=== PATIENT | male | born 1945 | race Caucasian/White ===

== ENCOUNTER 2016-12-11 08:31 | Day surgery (SDC) | payer MEDICARE, BC ==
[~2016-12-11] VITALS: Ht 180.3 cm; Wt 103.3 kg
[~2016-12-11 08:31] MED LIST: AMLO5TAB66 PO; CANA1TAB4 PO; CEFAZOLIN 1 GRAM INJECTION IV ONE; GLIP2.5T2 PO; LAMO150T PO; LEVO100T85 PO; LIDOCAINE 1% (10mg/ml) 2ml SDV INJ ONE; LISI-15 PO; LOVA40TA70 PO; LR 1,000 ML IV SCH
--- OUTSIDE RECORDS SUMMARY | 2016-12-11 08:35 | XMS REPORT | Referral Summary ---
Author Author [facility] Organization [facility] Address Unknown Phone Unavailable Care Team Providers Care Guest Laundry Attendant Name Role Phone Curtis Franz Primary Care Physician [phone] Encounter VC Date(s): 10/19/16 - 10/19/16 [facility], [address] [place] [address]- Discharge Diagnosis: Benign essential hypertension Discharge Diagnosis: Diastasis of rectus abdominis Discharge Diagnosis: Adult onset hypothyroidism Discharge Diagnosis: Type 2 diabetes mellitus, uncontrolled Discharge Diagnosis: Umbilical hernia Discharge Disposition: -Home or Self Care Attending Physician: Edwige Wang APRN Admitting Physician: Edwige Wang APRN Vital Signs Most recent to 1 oldest [Reference Range]: Temperature Tympanic 36.2 degC [36.6-38.1 degC] *LOW* (10/19/16 10:59 AM) Peripheral Pulse 80 bpm Rate [60-100 bpm] (10/19/16 10:59 AM) Respiratory Rate 16 br/min [14-20 br/min] (10/19/16 10:59 AM) Blood Pressure 134/78 mmHg [90-140/60-90 mmHg] (10/19/16 10:59 AM) Problem List Condition Effective Dates Status Health Status Informant Benign essential Active hypertension (disorder)(Confirmed ) Bleeding < 04/10/14 Resolved gums(Confirmed) Deviated nasal < 04/10/14 Resolved septum(Confirmed) Epilepsy(Confirmed) Active 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) History of tobacco < 04/10/14 Resolved use(Confirmed) Adult onset Active hypothyroidism(Confi rmed) Microalbuminuric Active Diabetic Nephropathy(Confirme d) Mixed Active hyperlipidemia(Confi rmed) Severe obstructive Active sleep apnea(Confirmed) Seizure(Confirmed) Active patient Tobacco < 10/28/14 Resolved patient user(Confirmed) Type 2 diabetes Active mellitus, uncontrolled(Confirm ed) Allergies, Adverse Reactions, Alerts No Known Medication Allergies Medications amLODIPine 5 mg oral tablet See Instructions, TAKE ONE TABLET BY MOUTH ONCE DAILY, # 90 tabs, 1 Refill(s), eRx: [facility] 2428, TAKE ONE TABLET BY MOUTH ONCE DAILY Start Date: 08/03/16 Status: Ordered aspirin 81 mg oral tablet, chewable 1 tabs, Oral, Daily, 0 Refill(s) Start Date: 04/10/14 Status: Ordered atorvastatin 80 mg oral tablet See Instructions, TAKE ONE-HALF TO ONE TABLET BY MOUTH ONCE DAILY, # 90 tabs, 2 Refill(s), eRx: [facility] 2428, TAKE ONE-HALF TO ONE TABLET BY MOUTH ONCE DAILY Start Date: 12/23/15 Status: Ordered glimepiride 2 mg oral tablet See Instructions, TAKE ONE TABLET BY MOUTH ONCE DAILY, # 90 tabs, 1 Refill(s), eRx: [place] [address], TAKE ONE TABLET BY MOUTH ONCE DAILY Start Date: 09/02/16 Status: Ordered Invokamet 150 mg-1000 mg oral tablet See Instructions, TAKE ONE TABLET BY MOUTH TWICE DAILY WITH BREAKFAST AND SUPPER. START WHEN INVOKANA 100 MG IS COMPLETE., # 60 tabs, 2 Refill(s), eRx: [facility] 242, TAKE ONE TABLET BY MOUTH TWICE DAILY WITH BREAKFAST AND SUPPER... Start Date: 08/24/16 Status: Ordered LaMICtal 150 mg oral tablet 150 mg 1 tabs, Oral, BID, # 60 tabs, 11 Refill(s), Pharmacy: [place] [address], 1 tabs Oral BID Start Date: 07/20/16 Status: Ordered levothyroxine 125 mcg (0.125 mg) oral tablet See Instructions, TAKE ONE TABLET BY MOUTH ONCE DAILY, # 90 tabs, eRx: [facility] 242, TAKE ONE TABLET BY MOUTH ONCE DAILY Start Date: 09/02/16 Status: Ordered lisinopril 20 mg oral tablet 20 mg 1 tabs, Oral, BID, X 90 days, # 180 tabs, 3 Refill(s), Pharmacy: [place] [id number] Start Date: 04/02/16 Stop Date: 03/28/17 Status: Ordered Results No data available for this section Immunizations Given and Recorded Vaccine Date Status Refusal Reason tetanus/diphth/pertuss (Tdap) adult/adol 07/10/10 Recorded influenza virus vaccine, inactivated 07/03/16 Given influenza virus vaccine, inactivated 07/05/15 Recorded influenza virus vaccine, inactivated1 07/24/14 Recorded influenza virus vaccine, live 06/16/13 Given influenza virus vaccine, live 06/01/12 Given pneumococcal 13-valent conjugate vaccine 08/15/15 Given pneumococcal 23-polyvalent vaccine 05/15/08 Recorded 1Result Comment: [07/24/2014] see scanned document Procedures Procedure Date Related Diagnosis Body Site Diabetic eye exam1 08/24/15 Eye examination - normal, no diabetic 2012 retinopathy Colonoscopy 08/21/11 Eye examination 12/27/09 Eye examination 12/27/08 Vasectomy 1974 Surgery - intestinal obstruction 1951 Appendectomy 1no diabetic retinopathy dr Lemus Social History Social History Type Response Smoking Status Former smoker Assessment and Plan Extracted from: Title: Office Visit Note-hernia/cdm Author: Edwige Wang DIRECTOR OF COMPENSATION Date: 10/19/16 Assessment/Plan 1.Umbilical hernia Recommend referral to Dr. Valero for further evaluation and management. I am suspicious this is the discomfort he is feeling when he sits up. I doubt the diastasis rectusis new in the last week and a half. Discussed nature of pathophysiology ofdiastasis rectus with patient. Avoid activities that exacerbate discomfort. I think light exercise is fine. Avoid heavy lifting or straining. Discussed signs and symptoms of incarcerated hernia and when to seek medical care. 2.Diastasis of rectus abdominis As above. 3.Type 2 diabetes mellitus, uncontrolled Labs reviewed with patient. We discussed adjusting medications versus working harder on lifestyle management. He would like to really give a little more effort towards lifestyle management. Plan to recheck hemoglobin A1c, chemistryin 6 months. 4.Adult onset hypothyroidism Adequately supplemented. No changes. 5.Benign essential hypertension Under acceptable control. No changes.
--- OUTSIDE RECORDS SUMMARY | 2016-12-11 08:35 | XMS REPORT | Referral Summary ---
Author Author [facility], Epileptology Organization [facility] Address Unknown Phone Unavailable Care Team Providers Care Polymer Tester Name Role Phone Jason Marroquin Primary Care Physician [phone] Encounter Date(s): 01/24/15 - 01/24/[address] [facility] [address] [facility] [address] [place], [place] [address] Discharge Diagnosis: Epilepsy Discharge Disposition: 01-Home or Self Care Attending Physician: Jacque Dumont MD Admitting Physician: Jacque Dumont MD Referring Physician: Alessandro Scherer JR, MD, FAAFP Vital Signs Most recent to 1 oldest [Reference Range]: Peripheral Pulse 72 bpm Rate [60-100 bpm] (01/24/15 10:56 AM) Blood Pressure 160/106 mmHg [90-140/60-90 mmHg] *HI* (01/24/15 10:56 AM) Problem List Condition Effective Dates Status Health Status Informant Benign essential Active hypertension (disorder)(Confirmed ) Bleeding Active gums(Confirmed) Deviated nasal < 04/10/14 Resolved septum(Confirmed) Deviated nasal Active septum (disorder)(Confirmed ) Diabetes(Confirmed) Active patient Dyslipidemia(Confirm Active ed) Epilepsy(Confirmed) Active 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) History of tobacco < 04/10/14 Resolved use(Confirmed) Hypothyroidism(Confi Active rmed) Obesity(Confirmed) < 04/10/14 Resolved Severe obstructive Active sleep apnea(Confirmed) Seizure(Confirmed) Active patient Tobacco Active patient user(Confirmed) Type 2 diabetes Active mellitus, uncontrolled(Confirm ed) Allergies, Adverse Reactions, Alerts No Known Medication Allergies Medications aspirin 81 mg oral tablet, chewable 1 tabs, Oral, Daily, 0 Refill(s) Start Date: 04/10/14 Status: Ordered atorvastatin 80 mg oral tablet See Instructions, TAKE ONE-HALF TO ONE TABLET BY MOUTH ONCE DAILY, # 90 tabs, 1 Refill(s), eRx: [facility] 2428, TAKE ONE-HALF TO ONE TABLET BY MOUTH ONCE DAILY Start Date: 12/21/14 Status: Ordered ATORVASTATIN 80MG TAB See Instructions, TAKE ONE-HALF TO ONE TABLET BY MOUTH ONCE DAILY, # 90 tabs, eRx: [facility] 2428, TAKE ONE-HALF TO ONE TABLET BY MOUTH ONCE DAILY Start Date: 06/29/14 Status: Ordered glimepiride 2 mg oral tablet See Instructions, TAKE ONE TABLET BY MOUTH ONCE DAILY, # 30 tabs, 4 Refill(s), eRx: [place] [address], TAKE ONE TABLET BY MOUTH ONCE DAILY Start Date: 04/08/15 Status: Ordered Glucometer strips (DME) DME Item Contour test strips dx 250.00 3 mos supply Fasting and 2 hrs pp, See Instructions, # 1 Each, 0 Refill(s), Pharmacy: [place] [address], Contour test strips; dx 250.00; 3 mos supply; Fasting and 2 hrs pp, Supply Start Date: 10/30/14 Status: Ordered LaMICtal 150 mg oral tablet 150 mg 1 tabs, Oral, BID, # 180 tabs, 3 Refill(s), Pharmacy: [place] [address], PLEASE USE THIS RX FOR 90 DAY SUPPLY. OUR NEW FAX#[phone], 1 tabs Oral BID Start Date: 04/16/15 Status: Ordered levothyroxine 125 mcg (0.125 mg) oral tablet See Instructions, TAKE ONE TABLET BY MOUTH ONCE DAILY, # 90 tabs, eRx: [place] [id number], TAKE ONE TABLET BY MOUTH ONCE DAILY Start Date: 06/05/15 Status: Ordered lisinopril 20 mg oral tablet 20 mg 1 tabs, Oral, BID, # 180 tabs, 3 Refill(s), Pharmacy: [place] [address] Start Date: 02/13/15 Status: Ordered metFORMIN 1000 mg oral tablet 1 tabs, Oral, BID, # 180 tabs, 3 Refill(s), Pharmacy: [place] [address], 1 tabs Oral BID Start Date: 10/30/14 Status: Ordered Viagra 100 mg oral tablet See Instructions, as needed for erectile dysfunction, 1/2 to 1 tab Oral Daily 1 hour before sexual activity, 0 Refill(s) Start Date: 04/10/14 Status: Ordered Results No data available for this section Immunizations Vaccine Date Refusal Reason tetanus/diphth/pertuss (Tdap) adult/adol 07/10/10 influenza virus vaccine, inactivated 07/05/15 influenza virus vaccine, inactivated1 07/24/14 influenza virus vaccine, live 06/16/13 influenza virus vaccine, live 06/01/12 pneumococcal 23-polyvalent vaccine 05/15/08 1Result Comment: [07/24/2014] see scanned document Procedures Procedure Date Related Diagnosis Body Site Eye examination - normal, no diabetic 2012 retinopathy Colonoscopy 08/21/11 Eye examination 12/27/09 Eye examination 12/27/08 Vasectomy 1974 Surgery - intestinal obstruction 195 Appendectomy Social History Social History Type Response Smoking Status Former smoker Assessment and Plan No data available for this section
--- OUTSIDE RECORDS SUMMARY | 2016-12-11 08:35 | XMS REPORT | Referral Summary ---
Author Author [facility] Organization [facility] Address Unknown Phone Unavailable Care Team Providers Care Chemical Dependency Nurse Name Role Phone Curtis Franz Primary Care Physician [phone] Encounter Date(s): 02/13/15 - 02/13/15 [facility] [place], [address] [place] [address] Discharge Diagnosis: Diabetes Discharge Diagnosis: Benign essential hypertension Discharge Diagnosis: Hypothyroidism Discharge Diagnosis: Ear lobe laceration Discharge Diagnosis: Dyslipidemia Discharge Disposition: 01-Home or Self Care Attending Physician: Edwige Wang APRN Admitting Physician: Edwige Wang APRN Vital Signs Most recent to 1 oldest [Reference Range]: Temperature Tympanic 35.7 degC [36.6-38.1 degC] *LOW* (02/13/15 10:24 AM) Peripheral Pulse 72 bpm Rate [60-100 bpm] (02/13/15 10:24 AM) Blood Pressure 152/90 mmHg [90-140/60-90 mmHg] *HI* (02/13/15 10:24 AM) Problem List Condition Effective Dates Status Health Status Informant Benign essential Active hypertension (disorder)(Confirmed ) Bleeding < 04/10/14 Resolved gums(Confirmed) Deviated nasal < 04/10/14 Resolved septum(Confirmed) Deviated nasal Active septum (disorder)(Confirmed ) Diabetes(Confirmed) Active patient Dyslipidemia(Confirm Active ed) Epilepsy(Confirmed) Active 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) History of tobacco < 04/10/14 Resolved use(Confirmed) Hypothyroidism(Confi Active rmed) Microalbuminuric Active Diabetic Nephropathy(Confirme d) Obesity(Confirmed) < 04/10/14 Resolved Severe obstructive Active sleep apnea(Confirmed) Seizure(Confirmed) Active patient Tobacco < 10/28/14 Resolved patient user(Confirmed) Type 2 diabetes Active mellitus, uncontrolled(Confirm ed) Allergies, Adverse Reactions, Alerts No Known Medication Allergies Medications amLODIPine 5 mg oral tablet 5 mg 1 tabs, Oral, Daily, # 90 tabs, 3 Refill(s), Pharmacy: [facility] 2428, 1 tabs Oral Daily Start Date: 08/15/15 Status: Ordered aspirin 81 mg oral tablet, chewable 1 tabs, Oral, Daily, 0 Refill(s) Start Date: 04/10/14 Status: Ordered atorvastatin 80 mg oral tablet See Instructions, TAKE ONE-HALF TO ONE TABLET BY MOUTH ONCE DAILY, # 90 tabs, 1 Refill(s), eRx: [facility] 2428, TAKE ONE-HALF TO ONE TABLET BY MOUTH ONCE DAILY Start Date: 12/21/14 Status: Ordered ATORVASTATIN 80MG TAB See Instructions, TAKE ONE-HALF TO ONE TABLET BY MOUTH ONCE DAILY, # 90 tabs, eRx: [facility] 2428, TAKE ONE-HALF TO ONE TABLET BY MOUTH ONCE DAILY Start Date: 06/29/14 Status: Ordered glimepiride 2 mg oral tablet See Instructions, TAKE ONE TABLET BY MOUTH ONCE DAILY, # 90 tabs, 3 Refill(s), Pharmacy: [facility] 2428, TAKE ONE TABLET BY MOUTH ONCE DAILY Start Date: 08/15/15 Status: Ordered LaMICtal 150 mg oral tablet 150 mg 1 tabs, Oral, BID, # 180 tabs, 3 Refill(s), Pharmacy: [facility] 2428, PLEASE USE THIS RX FOR 90 DAY SUPPLY. OUR NEW FAX#[phone], 1 tabs Oral BID Start Date: 04/16/15 Status: Ordered levothyroxine 125 mcg (0.125 mg) oral tablet See Instructions, TAKE ONE TABLET BY MOUTH ONCE DAILY, # 90 tabs, eRx: [facility] 2428, TAKE ONE TABLET BY MOUTH ONCE DAILY Start Date: 06/05/15 Status: Ordered lisinopril 20 mg oral tablet 20 mg 1 tabs, Oral, BID, # 180 tabs, 3 Refill(s), Pharmacy: [facility] 2428 Start Date: 02/13/15 Status: Ordered metFORMIN 1000 mg oral tablet 1 tabs, Oral, BID, # 180 tabs, 3 Refill(s), Pharmacy: [facility] 2428, 1 tabs Oral BID Start Date: 10/30/14 Status: Ordered Results No data available for this section Immunizations Vaccine Date Refusal Reason tetanus/diphth/pertuss (Tdap) adult/adol 07/10/10 influenza virus vaccine, inactivated 07/05/15 influenza virus vaccine, inactivated1 07/24/14 influenza virus vaccine, live 06/16/13 influenza virus vaccine, live 06/01/12 pneumococcal 13-valent conjugate vaccine 08/15/15 pneumococcal 23-polyvalent vaccine 05/15/08 1Result Comment: [07/24/2014] see scanned document Procedures Procedure Date Related Diagnosis Body Site Eye examination - normal, no diabetic 2012 retinopathy Colonoscopy 08/21/11 Eye examination 12/27/09 Eye examination 12/27/08 Vasectomy 1974 Surgery - intestinal obstruction 1951 Appendectomy Social History Social History Type Response Smoking Status Former smoker Assessment and Plan Extracted from: Title: Office Visit Note-CDM Author: Edwige Wang CLOCK REPAIRER Date: 02/13/15 Assessment/Plan Benign essential hypertension Increase lisinopril to 20 mg twice a day. Monitor blood pressures. Goal is less than 140/90. He is to call me if blood pressures do not improve. Plan recheck in 6 months. Ordered: Office Visit Level 4 Est 84698 Diabetes Pleased with current level of control. Continue to work on healthy eating and exercise. No change in medications. CDM report card completed and reviewed with patient. Last labs reviewed with patient. Recommendations discussed. Copy provided. Patient is not interested in Zostavax Prevnar 13. Recommend patient continue to work on weight loss goal of 10 pounds in the next 6 months. Ordered: Albumin/Creatinine Ratio, Urine Comprehensive Metabolic Panel Hemoglobin A1c Office Visit Level 4 Est 98468 Dyslipidemia Continue same. Ordered: Lipid Panel Office Visit Level 4 Est 21115 Ear lobe laceration Cauterized with silver nitrate. Bleeding stopped. Ordered: Office Visit Level 4 Est 52932 Hypothyroidism Recheck TSH in 6 months. Ordered: Office Visit Level 4 Est 13623 TSH with Reflex Free T4 Orders: lisinopril, 20 mg 1 tabs, Oral, BID, # 180 tabs, 3 Refill(s), [facility]
--- OUTSIDE RECORDS SUMMARY | 2016-12-11 08:35 | XMS REPORT | Referral Summary ---
Author Organization Unknown Address Unknown Phone Unavailable Care Team Providers Care Nurse Technician Name Role Phone Esperanza Scherer JR Primary Care Physician [phone] Encounter VC Date(s): 10/28/14 - 10/28/14 [facility] [address] [place] [address] [phone] Discharge Diagnosis: Seizure Discharge Disposition: Home or Self Care Attending Physician: Matt Carlos MD Admitting Physician: Matt Carlos MD Vital Signs Most recent to 1 oldest [Reference Range]: Temperature Oral 36.1 degC [35.8-37.3 degC] (10/28/14 5:46 AM) Peripheral Pulse 76 bpm Rate [60-100 bpm] (10/28/14 5:46 AM) Heart Rate Monitored 71 bpm [60-100 bpm] (10/28/14 7:10 AM) Respiratory Rate 18 br/min [14-20 br/min] (10/28/14 7:10 AM) Blood Pressure 129/72 mmHg [90-140/60-90 mmHg] (10/28/14 7:10 AM) Mean Arterial 115 mmHg Pressure, Cuff (10/28/14 6:30 AM) Most recent to 1 oldest [Reference Range]: SpO2 95 % (10/28/14 7:10 AM) Problem List Condition Effective Dates Status Health Status Informant Benign essential Active hypertension (disorder)(Confirmed ) Bleeding Active gums(Confirmed) Deviated nasal < 04/10/14 Resolved septum(Confirmed) Deviated nasal Active septum (disorder)(Confirmed ) Diabetes(Confirmed) Active patient Dyslipidemia(Confirm Active ed) 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) History of tobacco < 04/10/14 Resolved use(Confirmed) Hypothyroidism(Confi Active rmed) Obesity(Confirmed) < 04/10/14 Resolved Seizure(Confirmed) Active patient Tobacco Active patient user(Confirmed) Type 2 diabetes Active mellitus, uncontrolled(Confirm ed) Allergies, Adverse Reactions, Alerts No Known Medication Allergies Medications aspirin 81 mg oral tablet, chewable 1 tabs, Oral, Daily, 0 Refill(s) Start Date: 04/10/14 Status: Ordered atorvastatin 80 mg oral tablet 0.5 - 1 tab, Oral, Bedtime (once a day), 0 Refill(s) Start Date: 04/11/14 Status: Ordered ATORVASTATIN 80MG TAB See Instructions, TAKE ONE-HALF TO ONE TABLET BY MOUTH ONCE DAILY, # 90 tabs, eRx: [facility]28, TAKE ONE-HALF TO ONE TABLET BY MOUTH ONCE DAILY Special Instructions: TAKE ONE-HALF TO ONE TABLET BY MOUTH ONCE DAILY Start Date: 06/29/14 Status: Ordered levothyroxine 125 mcg (0.125 mg) oral tablet See Instructions, TAKE ONE TABLET BY MOUTH ONCE DAILY, # 90 tabs, 2 Refill(s), eRx: [facility] 2428, TAKE ONE TABLET BY MOUTH ONCE DAILY Special Instructions: TAKE ONE TABLET BY MOUTH ONCE DAILY Start Date: 09/19/14 Status: Ordered lisinopril 20 mg oral tablet See Instructions, TAKE ONE TABLET BY MOUTH EVERY DAY, # 90 tabs, 1 Refill(s), eRx: [facility] 2428, TAKE ONE TABLET BY MOUTH EVERY DAY Special Instructions: TAKE ONE TABLET BY MOUTH EVERY DAY Start Date: 08/10/14 Status: Ordered metFORMIN 1000 mg oral tablet 2 tabs, Oral, BID, 0 Refill(s) Start Date: 04/11/14 Status: Ordered Viagra 100 mg oral tablet See Instructions, as needed for erectile dysfunction, 1/2 to 1 tab Oral Daily 1 hour before sexual activity, 0 Refill(s) Special Instructions: 1/2 to 1 tab Oral Daily 1 hour before sexual activity Start Date: 04/10/14 Status: Ordered Results Hematology Most recent to 1 oldest [Reference Range]: WBC [4.8-10.8 K/uL] 7.1 K/uL (10/28/14 6:02 AM) RBC [4.60-6.20 M/uL] 4.33 M/uL *LOW* (10/28/14 6:02 AM) Hgb [14.0-18.0 13.6 gm/dL gm/dL] *LOW* (10/28/14:02 AM) Hct [42.0-52.0 %] 40.8 % *LOW* (10/28/14 AM) MCV [82.0-99.0 fL] 94.2 fL (10/28/14:02 AM) MCH [27.0-32.0 pg] 31.4 pg (10/28/14 AM) MCHC [32.0-36.0 33.3 gm/dL gm/dL] (10/28/14 AM) RDW [11.5-14.5 %] 12.6 % (10/28/14:02 AM) Platelet [150-400 199 K/uL K/uL] (10/28/14 AM) MPV [9.4-12.3 fL] 10.8 fL (10/28/14 AM) Immature 0.3 % Granulocytes (10/28/14) [0.0-1.0 %] Neutrophils [51-75 59 % %] (10/28/14:02 AM) Lymphocytes [20-46 29 % %] (10/28/14:02 AM) Monocytes [4-11 %] 8 % (10/28/14:02 AM) Eosinophils [0-4 %] 3 % (10/28/14: AM) Basophils [0-2 %] 1 % (10/28/14:02 AM) Neutro Absolute 4.19 THOUS [1.90-7.00 THOUS] (10/28/14:02 AM) Lymph Absolute 2.05 THOUS [0.80-3.30 THOUS] (10/28/14 6:02 AM) [place] Absolute 0.58 THOUS [0.30-1.00 THOUS] (10/28/14 6:02 AM) Eos Absolute 0.24 THOUS [0.00-0.50 THOUS] (10/28/14 6:02 AM) Baso Absolute 0.06 THOUS [0.00-0.20 THOUS] (10/28/14 6:02 AM) Nucleated RBC 0.0 /100 WBC Automated [0 /100 (10/28/14:02 AM) WBC] Chemistry Most recent to 1 oldest [Reference Range]: Sodium Lvl [136-144 138 mEq/L mEq/L] (10/28/14 6:02 AM) Potassium Lvl 4.2 mEq/L [3.6-5.1 mEq/L] (10/28/14 6:02 AM) Chloride [99-109 106 mEq/L mEq/L] (10/28/14 6:02 AM) CO2 [22-32 mEq/L] 22 mEq/L (10/28/14 6:02 AM) AGAP [3-20] 10 (10/28/14 6:02 AM) BUN [4-20 mg/dL] 12 mg/dL (10/28/14 6:02 AM) Glucose Lvl [70-100 248 mg/dL mg/dL] *HI* (10/28/14 6:02 AM) Creatinine Lvl 1.06 mg/dL [0.64-1.27 mg/dL] (10/28/14 6:02 AM) eGFR [>60] >60 1 (10/28/14 6:02 AM) Calcium Lvl 8.8 mg/dL [8.6-10.0 mg/dL] (10/28/14 6:02 AM) 1Result Comment: Multiply eGFR results by 1.21 for race. Immunizations Vaccine Date Refusal Reason tetanus/diphth/pertuss (Tdap) adult/adol 07/10/10 influenza virus vaccine, inactivated1 07/24/14 influenza virus [...]
--- OUTSIDE RECORDS SUMMARY | 2016-12-11 08:35 | XMS REPORT | Continuity of Care Document ---
Author Author [facility] Organization [facility] Address Unknown Phone Unavailable Allergies Active Description Code Type Severity Reaction Onset Reported/Identified Relationship to Patient Clinical Status Yes No Known Medication Allergies NKMA N/A N/A 04/11/2014 Medications Problems Procedures Results Test Result Range CBC With Platelet and Differential - 08/05/16 10:41 Absolute Basophils 0.06 10*3/uL 0.00- 0.30 Absolute Eosinophils 0.21 10*3 0.00-0.60 Absolute Lymphocytes 1.77 10*3 1.00-4.00 Absolute Monocytes 0.83 10*3 0.20-0.80 Absolute Neutrophils 3.14 10*3 2.50-7.00 Basophils 1 % 0-2 Eosinophils 4 % 0-6 HCT 41.9 % 40.0-54.0 HGB 13.6 g/dL 12.0-16.0 Lymphocytes 30 % 20-40 MCH 30.4 pg 26.0-34.0 MCHC 32.5 g/dL 32.0-36.0 MCV 93.5 fL 80.0-96.0 Monocytes 14 % 4-8 MPV 9.8 fL 8.8-14.8 Neutrophils 52 % 50-70 Platelet Count 223 K/uL 150-400 RBC 4.48 10*6/uL 3.70-5.20 RDW 13.2 % 0.0-14.5 WBC 6.0 K/uL 5.0-10.0 PTT/PT (INR) - 08/05/16 10:51 INR 1.0 NA 0.8-1.2 Prothrombin Time Venous seconds PTT 28.2 seconds 25.0-35.0 Encounters ACCT No. Visit Date/Time Discharge Status Pt. Type Provider Facility Loc./Unit Complaint [id number] 10/03/2013 13:44:00 10/03/2013 23 :59:59 CLS Outpatient
--- OUTSIDE RECORDS SUMMARY | 2016-12-11 08:35 | XMS REPORT | Referral Summary ---
Author Author [facility] Organization [facility] Address Unknown Phone Unavailable Care Team Providers Care Cabin Supervisor Name Role Phone Jason Marroquin Primary Care Physician [phone] Encounter Date(s): 06/13/15 - 06/13/15 [facility] [address] [address] [[email or web address]] Discharge Diagnosis: Severe obstructive sleep apnea Discharge Disposition: 01-Home or Self Care Attending Physician: Karla Alexander Admitting Physician: Karla Alexander Vital Signs Most recent to 1 oldest [Reference Range]: Peripheral Pulse 74 bpm Rate [60-100 bpm] (06/13/15 12:49 PM) Blood Pressure 142/82 mmHg [90-140/60-90 mmHg] *HI* (06/13/15 12:49 PM) SpO2 95 % (06/13/15 12:49 PM) Problem List Condition Effective Dates Status Health [...] DAILY, # 90 tabs, 1 Refill(s), eRx: [place] [id number], TAKE ONE-HALF TO ONE TABLET BY MOUTH ONCE DAILY Start Date: 12/21/14 Status: Ordered ATORVASTATIN 80MG TAB See Instructions, TAKE ONE-HALF TO ONE TABLET BY MOUTH ONCE DAILY, # 90 tabs, eRx: [place] [id number], TAKE ONE-HALF TO ONE TABLET BY MOUTH ONCE DAILY Start Date: 06/29/14 Status: Ordered glimepiride 2 mg oral tablet See Instructions, TAKE ONE TABLET BY MOUTH ONCE DAILY, # 30 tabs, 4 Refill(s), eRx: [place] [id number], TAKE ONE TABLET BY MOUTH ONCE DAILY Start Date: 04/08/15 Status: Ordered Glucometer strips (DME) DME Item Contour test strips dx 250.00 3 mos supply Fasting and 2 hrs pp, See Instructions, # 1 Each, 0 Refill(s), Pharmacy: [place] [id number], Contour test strips; dx 250.00; 3 mos supply; Fasting and 2 hrs pp, Supply Start Date: 10/30/14 Status: Ordered LaMICtal 150 mg oral tablet 150 mg 1 tabs, Oral, BID, # 180 tabs, 3 Refill(s), Pharmacy: [place] [id number], PLEASE USE THIS RX FOR 90 DAY SUPPLY. OUR NEW FAX#[phone], 1 tabs Oral BID Start Date: 04/16/15 Status: Ordered levothyroxine 125 mcg (0.125 mg) oral tablet See Instructions, TAKE ONE TABLET BY MOUTH ONCE DAILY, # 90 tabs, eRx: [place] [id number], TAKE ONE TABLET BY MOUTH ONCE DAILY Start Date: 06/05/15 Status: Ordered lisinopril 20 mg oral tablet 20 mg 1 tabs, Oral, BID, # 180 tabs, 3 Refill(s), Pharmacy: [place] [id number] Start Date: 02/13/15 Status: Ordered metFORMIN 1000 mg oral tablet 1 tabs, Oral, BID, # 180 tabs, 3 Refill(s), Pharmacy: [place] [id number], 1 tabs Oral BID Start Date: 10/30/14 [...] and Plan Extracted from: Title: Office Visit Note Author: Karla Alexander Date: 06/13/15 Assessment/Plan 1.Severe obstructive sleep apnea - Adequate treatment with CPAP symptomatically and objectively at current pressure withexcellent adherence to therapy. Order to [facility] for supplies. He does meet Medicare requirements for ongoing treatment. Continue CPAP with all sleep at 14cm. -CPAP download reviewed with the patient and patient is complying with and benefitting from treatment. -Avoid driving , partaking in hazardous activities, or operating heavy machinery if drowsy. -Continue appropriate cleaning of the machine/humidifier and update of all supplies including mask , tubing , and filters . -Return for follow-up in 1 year . Return/call sooner if any problems arise in the meantime.
--- OUTSIDE RECORDS SUMMARY | 2016-12-11 08:35 | XMS REPORT | Referral Summary ---
Author Organization Unknown Address Unknown Phone Unavailable Care Team Providers Care Lead Investigator Name Role Phone Esperanza Scherer JR Primary Care Physician [phone] Encounter Date(s): 11/12/14 - 11/12/14 [facility] [address] [place] [address] [place] [id number] Discharge Diagnosis: Type 2 diabetes, HbA1C goal < 7% Discharge Diagnosis: Seizure Discharge Disposition: Home or Self Care Attending Physician: Edwige Wang APRN Admitting Physician: Edwige Wang APRN Vital Signs Most recent to 1 oldest [Reference Range]: Temperature Tympanic 36.3 degC [36.6-38.1 degC] *LOW* (11/12/14 8:02 AM) Peripheral Pulse 76 bpm Rate [60-100 bpm] (11/12/14 8:02 AM) Blood Pressure 136/82 mmHg [90-140/60-90 mmHg] (11/12/14 8:02 AM) Problem List Condition Effective Dates Status [...] Reactions, Alerts No Known Medication Allergies Medications Amaryl 2 mg oral tablet 1 tabs, Oral, Daily, # 30 tabs, 3 Refill(s), Pharmacy: [id number], 1 tabs Oral Daily Start Date: 10/31/14 Status: Ordered aspirin 81 mg oral tablet, chewable 1 tabs, Oral, Daily, 0 Refill(s) Start Date: 04/10/14 Status: Ordered atorvastatin 80 mg oral tablet 0.5 - 1 tab, Oral, Bedtime (once a day), 0 Refill(s) Start Date: 04/11/14 Status: Ordered ATORVASTATIN 80MG TAB See Instructions, TAKE ONE-HALF TO ONE TABLET BY MOUTH ONCE DAILY, # 90 tabs, eRx: [id number], TAKE ONE-HALF TO ONE TABLET BY MOUTH ONCE DAILY Special Instructions: TAKE ONE-HALF TO ONE TABLET BY MOUTH ONCE DAILY Start Date: 06/29/14 Status: Ordered Glucometer strips (DME) DME Item Contour test strips dx 250.00 3 mos supply Fasting and 2 hrs pp, See Instructions, # 1 Each, 0 Refill(s), Pharmacy: [place] [id number], Contour test strips; dx 250.00; 3 mos supply; Fasting and 2 hrs pp, Supply Special Instructions: Contour test strips dx 250.00 3 mos supply Fasting and 2 hrs pp Start Date: 10/30/14 Status: Ordered levothyroxine 125 mcg (0.125 mg) oral tablet See Instructions, TAKE ONE TABLET BY MOUTH ONCE DAILY, # 90 tabs, 2 Refill(s), eRx: [facility], TAKE ONE TABLET BY MOUTH ONCE DAILY Special Instructions: TAKE ONE TABLET BY MOUTH ONCE DAILY Start Date: 09/19/14 Status: Ordered lisinopril 20 mg oral tablet See Instructions, TAKE ONE TABLET BY MOUTH EVERY DAY, # 90 tabs, 1 Refill(s), eRx: [facility], TAKE ONE TABLET BY MOUTH EVERY DAY Special Instructions: TAKE ONE TABLET BY MOUTH EVERY DAY Start Date: 08/10/14 Status: Ordered metFORMIN 1000 mg oral tablet 1 tabs, Oral, BID, # 180 tabs, 3 Refill(s), Pharmacy: [place] [id number], 1 tabs Oral BID Start Date: 10/30/14 Status: Ordered Viagra 100 mg oral tablet See Instructions, as needed for erectile dysfunction, 1/2 to 1 tab Oral Daily 1 hour before sexual activity, 0 Refill(s) Special Instructions: 1/2 to 1 tab Oral Daily 1 hour before sexual activity Start Date: 8/5/14 Status: Ordered Vimpat 100 mg oral tablet 1 tabs, Oral, BID, # 60 tabs, 5 Refill(s) Start Date: 11/12/14 Status: Ordered Results Chemistry Most recent to 1 oldest [Reference Range]: Sodium Lvl [135-144 144 mEq/L mEq/L] (11/12/14 7:47 AM) Potassium Lvl 4.5 mEq/L [3.5-5.2 mEq/L] (11/12/14 7:47 AM) Chloride [99-111 110 mEq/L mEq/L] (11/12/14 7:47 AM) CO2 [23-31 mEq/L] 24 mEq/L (11/12/14 7:47 AM) AGAP [3-20] 10 (11/12/14 7:47 AM) BUN [8-26 mg/dL] 20 mg/dL (11/12/14 7:47 AM) Glucose Lvl [70-99 167 mg/dL mg/dL] *HI* (11/12/14 7:47 AM) Creatinine Lvl 0.90 mg/dL [0.72-1.25 mg/dL] (11/12/14 7:47 AM) eGFR [>60 mL/min] >60 mL/min 1 (11/12/14 7:47 AM) Calcium Lvl 9.1 mg/dL [8.9-10.5 mg/dL] (11/12/14 7:47 AM) 1Result Comment: Multiply eGFR results by [...] smoker Assessment and Plan Extracted from: Title: Ambulatory Patient Education Author: Edwige Wang GEOLOGICAL DRAFTER Date: 11/12/14 Family Medicine Seizure, Adult A seizure is abnormal electrical activity in the brain. Seizures can cause a change in attention or behavior (altered mental status ). Seizures often involve uncontrollable shaking (convulsions ). Seizures usually last from 30 seconds to 2 minutes. Epilepsy is a brain disorder in which a patient has repeated seizures over time. CAUSES There are many different problems that can cause seizures. In some cases, no cause is found. Common causes of seizures include: Head injuries. Brain tumors. Infections. Imbalance of chemicals in the blood. Kidney failure or liver failure. Heart disease. Drug abuse. Stroke. Withdrawal from certain drugs or alcohol. defects. Malfunction of a neurosurgical device placed in the brain. SYMPTOMS Symptoms vary depending on the part of the brain that is involved. Right before a seizure, you may have a warning (aura ) that a seizure is about to occur. An aura may include the following symptoms: Fear or anxiety. Nausea. Feeling like the room is spinning (vertigo ). Vision changes, such as seeing flashing lights or spots. Common symptoms during a seizure include: Convulsions. Drooling. Rapid eye movements. Grunting. Loss of bladder and bowel control. Bitter taste in the mouth. After a seizure, you may feel confused and sleepy. You may also have an injury resulting from convulsions during the seizure. DIAGNOSIS Your caregiver will perform a physical exam and run some tests to determine the type and cause of your seizure. These tests may include: Blood tests. A lumbar puncture test. In this test, a small amount of fluid is removed from the spine and examined. Electrocardiography (ECG). This test records the electrical activity in your heart. Imaging tests, such as computed tomography (CT) scans or magnetic resonance imaging (MRI). Electroencephalography (EEG). This test records the electrical activity in your brain. TREATMENT Seizures usually stop on their own. Treatment will depend on the cause of your seizure. In some cases, medicine may be given to prevent future seizures. HOME CARE INSTRUCTIONS If you are given medicines, take them exactly as prescribed by your caregiver. Keep all follow-up appointments as directed by your caregiver. Do not swim or drive until your caregiver says it is okay. Teach friends and family what to do if you have a seizure. They should: Lay you on the ground to prevent a fall. Put a cushion under your head. Loosen any tight clothing around your neck. Turn you on your side. If vomiting occurs, this helps keep your airway clear. Stay with you until you recover. SEEK IMMEDIATE MEDICAL CARE IF: The seizure lasts longer than 2 to 5 minutes. The seizure is severe or the person does not wake up after the seizure. The person has altered mental status. Drive the person to the emergency department or call your local emergency services (911 in [place] MAKE SURE YOU: Understand these instructions. Will watch your condition. Will get help right away if you are not doing well or get worse. Document Released: 08/20/2001 Document Revised: 11/14/2012 Document Reviewed: Exit[employer] Patient Information 2014 [employer]. No follow up information was provided. Extracted from: Title: BS review Author: Edwige Wang APRN Date: 11/12/14 Assessment/Plan Seizure Continue to follow with neurology. Stay on Vimpat. Discussed calling EMS has recurrent grand mal seizures. Can refuse transport if has resolved by the time they arrive. Notify neurologist for recurrent seizures. Type 2 diabetes, HbA1C goal < 7% Continue current medications without change. Discussed if he begins to have hypoglycemic symptoms will need to decrease the Amaryl. Would be concerned about this if he bucklesin on weight loss. Call with any questions or concerns. Ordered: Office Visit Level 3 Est [address]
--- OUTSIDE RECORDS SUMMARY | 2016-12-11 08:35 | XMS REPORT | Referral Summary ---
Author Author [facility] Organization [facility] Address Unknown Phone Unavailable Care Team Providers Care Corporate Compliance Director Name Role Phone Jason Marroquin Primary Care Physician [phone] Encounter Date(s): 06/13/15 - 06/13/15 [facility] [address] [id number] Discharge Diagnosis: Severe obstructive sleep apnea Discharge [...] DAILY, # 90 tabs, 1 Refill(s), eRx: [place] [id number], TAKE ONE-HALF TO ONE TABLET BY MOUTH ONCE DAILY Start Date: 12/21/14 Status: Ordered ATORVASTATIN 80MG TAB See Instructions, TAKE ONE-HALF TO ONE TABLET BY MOUTH ONCE DAILY, # 90 tabs, eRx: [place] [id number], TAKE ONE-HALF TO ONE TABLET BY MOUTH ONCE DAILY Start Date: 06/29/14 Status: Ordered glimepiride 2 mg oral tablet See Instructions, TAKE ONE TABLET BY MOUTH ONCE DAILY, # 30 tabs, 4 Refill(s), eRx: [place] [id number], TAKE ONE TABLET BY MOUTH ONCE DAILY Start Date: 04/08/15 Status: Ordered Glucometer strips (DME) DME Item Contour test strips dx 250.00 3 mos supply Fasting and 2 hrs pp, See Instructions, # 1 Each, 0 Refill(s), Pharmacy: [place] [id number], Contour test strips; dx 250.00; 3 mos supply; Fasting and 2 hrs pp, Supply Start Date: 10/30/14 Status: Ordered LaMICtal 150 mg oral tablet 150 mg 1 tabs, Oral, BID, # 180 tabs, 3 Refill(s), Pharmacy: [place] [id number], PLEASE USE THIS RX FOR 90 DAY SUPPLY. OUR NEW FAX#[phone], 1 tabs Oral BID Start Date: 04/16/15 Status: Ordered levothyroxine 125 mcg (0.125 mg) oral tablet See Instructions, TAKE ONE TABLET BY MOUTH ONCE DAILY, # 90 tabs, eRx: [place] [id number], TAKE ONE TABLET BY MOUTH ONCE DAILY Start Date: 06/05/15 Status: Ordered lisinopril 20 mg oral tablet 20 mg 1 tabs, Oral, BID, # 180 tabs, 3 Refill(s), Pharmacy: [place] [id number] Start Date: 02/13/15 Status: Ordered metFORMIN 1000 mg oral tablet 1 tabs, Oral, BID, # 180 tabs, 3 Refill(s), Pharmacy: [place] [id number], 1 tabs Oral BID Start Date: 10/30/14 [...] pressure withexcellent adherence to therapy. Order to [facility] for supplies. He does meet Medicare requirements [...]
--- OUTSIDE RECORDS SUMMARY | 2016-12-11 08:35 | XMS REPORT | Referral Summary ---
Author Author [facility] Organization [facility] Address Unknown Phone Unavailable Care Team Providers Care Script Developer Name Role Phone Curtis Franz Primary Care Physician [phone] Encounter [facility] [id number] Date(s): 03/27/15 - 03/27/[address] [facility] [address] [facility] [address] [place], [place] [address] Discharge Diagnosis: Seizure, epileptic Discharge Disposition: 01-Home or Self Care Attending Physician: Robert Martines APRN Admitting Physician: Robert Martines APRN Referring Physician: Trey Marroquin MD Vital Signs Most recent to 1 oldest [Reference Range]: Peripheral Pulse 81 bpm Rate [60-100 bpm] (03/27/15 3:33 PM) Blood Pressure 128/88 mmHg [90-140/60-90 mmHg] (03/27/15 3:33 PM) Problem List Condition Effective Dates Status [...] Daily, # 90 tabs, 3 Refill(s), Pharmacy: [place] [id number], 1 tabs Oral Daily Start Date: 08/15/15 Status: Ordered aspirin 81 mg oral tablet, chewable 1 tabs, Oral, Daily, 0 Refill(s) Start Date: 04/10/14 Status: Ordered atorvastatin 80 mg oral tablet See Instructions, TAKE ONE-HALF TO ONE TABLET BY MOUTH ONCE DAILY, # 90 tabs, 1 Refill(s), eRx: [place] [id number], TAKE ONE-HALF TO ONE TABLET BY MOUTH ONCE DAILY Start Date: 12/21/14 Status: Ordered ATORVASTATIN 80MG TAB See Instructions, TAKE ONE-HALF TO ONE TABLET BY MOUTH ONCE DAILY, # 90 tabs, eRx: [place] [id number], TAKE ONE-HALF TO ONE TABLET BY MOUTH ONCE DAILY Start Date: 06/29/14 Status: Ordered glimepiride 2 mg oral tablet See Instructions, TAKE ONE TABLET BY MOUTH ONCE DAILY, # 90 tabs, 3 Refill(s), Pharmacy: [place] [id number], TAKE ONE TABLET BY MOUTH ONCE DAILY Start Date: 08/15/15 Status: Ordered LaMICtal 150 mg oral tablet 150 mg 1 tabs, Oral, BID, # 180 tabs, 3 Refill(s), Pharmacy: [place] [address], PLEASE USE THIS RX FOR 90 DAY SUPPLY. OUR NEW FAX#[phone], 1 tabs Oral BID Start Date: 04/16/15 Status: Ordered levothyroxine 125 mcg (0.125 mg) oral tablet See Instructions, TAKE ONE TABLET BY MOUTH ONCE DAILY, # 90 tabs, 1 Refill(s), eRx: [place] [id number], TAKE ONE TABLET BY MOUTH ONCE DAILY Start Date: 09/05/15 Status: Ordered lisinopril 20 mg oral tablet 20 mg 1 tabs, Oral, BID, # 180 tabs, 3 Refill(s), Pharmacy: [place] [id number] Start Date: 02/13/15 Status: Ordered metFORMIN 1000 mg oral tablet 1 tabs, Oral, BID, # 180 tabs, 3 Refill(s), Pharmacy: [place] [id number], 1 tabs Oral BID Start Date: 10/30/14 [...] smoker Assessment and Plan Extracted from: Title: Epilepsy follow-up Author: Robert Martines II CHARGE HISTOTECHNOLOGIST Date: 03/27/15 Assessment/Plan Epilepsy 1. Lamictal remains at 150 mg twice a day. 2. We will taper him off of Vimpat. He is currently taking 100 mg twice a day. He will remain on 50 mg twice a day for one week and then discontinue the medication. 3. Scheduled to return to the clinic in4 months for follow-up evaluation. Clinic visit of 30 minutes with greater than 50 percent of the time spent covering the following topics: Seizure risk factors, adverse experiences related to Lamictal, potential for breakthrough seizures and he was given written instructions on the tapering schedule for the Vimpat. He and his had several questions. All of them were addressed at this time. They're in agreement with this plan. I discussed the patient with the preceptor.
--- OUTSIDE RECORDS SUMMARY | 2016-12-11 08:35 | XMS REPORT | Referral Summary ---
Author Author [facility] Organization [facility] Address Unknown Phone Unavailable Care Team Providers Care Library Media Specialist Name Role Phone Curtis Franz Primary Care Physician [phone] Encounter [facility] Date(s): 08/05/16 - 08/05/16 [facility], [address] [place] [address] Discharge Diagnosis: Bleeds easily Discharge Diagnosis: Non-pressure chronic ulcer of left calf limited to breakdown of skin Discharge Diagnosis: Lower extremity venous stasis Discharge Disposition: 01-Home or Self Care Attending Physician: Edwige Wang APRN Admitting Physician: Edwige Wang APRN Vital Signs Most recent to 1 oldest [Reference Range]: Temperature Tympanic 36.8 degC [36.6-38.1 degC] (08/05/16 10:06 AM) Peripheral Pulse 84 bpm Rate [60-100 bpm] (08/05/16 10:06 AM) Blood Pressure 138/88 mmHg [90-140/60-90 mmHg] (08/05/16 10:06 AM) Problem List Condition Effective Dates Status Health Status Informant Benign essential Active hypertension (disorder)(Confirmed ) Bleeding < 04/10/14 Resolved gums(Confirmed) Deviated nasal < 04/10/14 Resolved septum(Confirmed) Epilepsy(Confirmed) Active 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) History of tobacco < 04/10/14 Resolved use(Confirmed) Hypothyroidism(Confi Active rmed) Microalbuminuric Active Diabetic Nephropathy(Confirme d) Mixed Active hyperlipidemia(Confi rmed) Severe obstructive Active sleep apnea(Confirmed) Seizure(Confirmed) Active patient Tobacco < 10/28/14 Resolved patient user(Confirmed) Type 2 diabetes Active mellitus, uncontrolled(Confirm ed) Allergies, Adverse Reactions, Alerts No Known Medication Allergies Medications amLODIPine 5 mg oral tablet See Instructions, TAKE ONE TABLET BY MOUTH ONCE DAILY, # 90 tabs, 1 Refill(s), eRx: [facility], TAKE ONE TABLET BY MOUTH ONCE DAILY Start Date: 08/03/16 Status: Ordered aspirin 81 mg oral tablet, chewable 1 tabs, Oral, Daily, 0 Refill(s) Start Date: 04/10/14 Status: Ordered atorvastatin 80 mg oral tablet See Instructions, TAKE ONE-HALF TO ONE TABLET BY MOUTH ONCE DAILY, # 90 tabs, 2 Refill(s), eRx: [facility] 2428, TAKE ONE-HALF TO ONE TABLET BY MOUTH ONCE DAILY Start Date: 12/23/15 Status: Ordered glimepiride 2 mg oral tablet See Instructions, TAKE ONE and 1/2 TABLET BY MOUTH ONCE DAILY, # 90 tabs, 3 Refill(s), Pharmacy: [place] [id number], TAKE ONE TABLET BY MOUTH ONCE DAILY Start Date: 08/15/15 Status: Ordered Invokamet 150 mg-1000 mg oral tablet See Instructions, TAKE ONE TABLET BY MOUTH TWICE DAILY WITH BREAKFAST AND SUPPER. START WHEN INVOKANA 100 MG IS COMPLETE., # 60 tabs, 2 Refill(s), eRx: [facility] 242, TAKE ONE TABLET BY MOUTH TWICE DAILY WITH BREAKFAST AND SUPPER... Start Date: 05/25/16 Status: Ordered LaMICtal 150 mg oral tablet 150 mg 1 tabs, Oral, BID, # 60 tabs, 11 Refill(s), Pharmacy: [place] [address], 1 tabs Oral BID Start Date: 07/20/16 Status: Ordered levothyroxine 125 mcg (0.125 mg) oral tablet See Instructions, TAKE ONE TABLET BY MOUTH ONCE DAILY, # 90 tabs, 1 Refill(s), eRx: [facility] 242, TAKE ONE TABLET BY MOUTH ONCE DAILY Start Date: 03/10/16 Status: Ordered lisinopril 20 mg oral tablet 20 mg 1 tabs, Oral, BID, X 90 days, # 180 tabs, 3 Refill(s), Pharmacy: [place] [address] Start Date: 04/02/16 Stop Date: 03/28/17 Status: Ordered Results Hematology Most recent to 1 oldest [Reference Range]: WBC [5.0-10.0 6.0 10*3/uL 10*3/uL] (08/05/16 10:41 AM) RBC [3.70-5.20] 4.48 (08/05/16 10:41 AM) Hgb [12.0-16.0 13.6 gm/dL gm/dL] (08/05/16 10:41 AM) Hct [40.0-54.0 %] 41.9 % (08/05/16 10:41 AM) MCV [80.0-96.0 fL] 93.5 fL (08/05/16 10:41 AM) MCH [26.0-34.0 pg] 30.4 pg (08/05/16 10:41 AM) MCHC [32.0-36.0 32.5 gm/dL gm/dL] (08/05/16 10:41 AM) RDW [0.0-14.5 %] 13.2 % (08/05/16 10:41 AM) Platelet [150-400 223 10*3/uL 10*3/uL] (08/05/16 10:41 AM) MPV [8.8-14.8 fL] 9.8 fL (08/05/16 10:41 AM) Neutrophils [50-70 52 % %] (08/05/16 10:41 AM) Lymphocytes [20-40 30 % %] (08/05/16 10:41 AM) Monocytes [4-8 %] 14 % *HI* (08/05/16 10:41 AM) Eosinophils [0-6 %] 4 % (08/05/16 10:41 AM) Basophils [0-2 %] 1 % (08/05/16 10:41 AM) Neutro Absolute 3.14 10*3 [2.50-7.00 10*3] (08/05/16 10:41 AM) Lymph Absolute 1.77 10*3 [1.00-4.00 10*3] (08/05/16 10:41 AM) [place] Absolute 0.83 10*3 [0.20-0.80 10*3] *HI* (08/05/16 10:41 AM) Eos Absolute 0.21 10*3 [0.00-0.60 10*3] (08/05/16 10:41 AM) Baso Absolute 0.06 [0.00-0.30] (08/05/16 10:41 AM) Coagulation Most recent to 1 oldest [Reference Range]: PT Venous (08/05/16 10:51 AM) INR [0.8-1.2] 1.0 1 (08/05/16 10:51 AM) PTT [25.0-35.0 28.2 seconds seconds] (08/05/16 10:51 AM) 1Result Comment: Normal (no anticoagulant): 0.8 - 1.2 Units Routine Therapeutic Range: 2.0 - 3.0 Units High Risk Therapeutic Range: 2.5 - 3.5 Units Immunizations Vaccine Date Refusal Reason tetanus/diphth/pertuss (Tdap) adult/adol 07/10/10 influenza virus vaccine, inactivated 07/03/16 influenza virus vaccine, inactivated 07/05/15 influenza virus [...] and Plan Extracted from: Title: Office Visit Note-leg sore Author: Edwige Wang APRN Date: Assessment/Plan 1.Bleeds easily No notable cause except for baby aspirin. No significant bruising usually. Check PT/PTT. Liver enzymes are normal. Ordered: PT/PTT 2.Non-pressure chronic ulcer of left calf limited to breakdown of skin Aquacell and Avellyn dressing applied. Instructed him to leave it on for a week. If sores have not healedthen return to the office for repeat evaluation. 3.Lower extremity venous stasis Recommend ankle-brachial indexfor evaluation of peripheral vascular disease. Patient is diabetic and also has hypertension. Ordered: US LE Arterial Duplex Bilateral
--- OUTSIDE RECORDS SUMMARY | 2016-12-11 08:35 | XMS REPORT | Referral Summary ---
Author Author [facility] Organization [facility] Address Unknown Phone Unavailable Care Team Providers Care Adult Education Instructor Name Role Phone Jason Marroquin Primary Care Physician [phone] Encounter [facility] Date(s): 07/08/15 - 07/08/[address] [address] [facility] [address] [facility] [address] [place], [place] [address] Discharge Diagnosis: Epilepsy Discharge Disposition: 01-Home or Self Care Attending Physician: Jacque Dumont MD Vital Signs Most recent to 1 oldest [Reference Range]: Blood Pressure 128/73 mmHg [90-140/60-90 mmHg] (07/08/15 9:07 AM) Problem List Condition Effective Dates Status [...] DAILY, # 90 tabs, 1 Refill(s), eRx: [id number], TAKE ONE-HALF TO ONE TABLET BY MOUTH ONCE DAILY Start Date: 12/21/14 Status: Ordered ATORVASTATIN 80MG TAB See Instructions, TAKE ONE-HALF TO ONE TABLET BY MOUTH ONCE DAILY, # 90 tabs, eRx: [place] [id number], TAKE ONE-HALF TO ONE TABLET BY MOUTH ONCE DAILY Start Date: 06/29/14 Status: Ordered glimepiride 2 mg oral tablet See Instructions, TAKE ONE TABLET BY MOUTH ONCE DAILY, # 30 tabs, 4 Refill(s), eRx: [place] [id number], TAKE ONE TABLET BY MOUTH ONCE DAILY Start Date: 04/08/15 Status: Ordered Glucometer strips (DME) DME Item Contour test strips dx 250.00 3 mos supply Fasting and 2 hrs pp, See Instructions, # 1 Each, 0 Refill(s), Pharmacy: [place] [address], Contour test strips; dx 250.00; 3 mos supply; Fasting and 2 hrs pp, Supply Start Date: 10/30/14 Status: Ordered LaMICtal 150 mg oral tablet 150 mg 1 tabs, Oral, BID, # 180 tabs, 3 Refill(s), Pharmacy: [place] [address], PLEASE USE THIS RX FOR 90 DAY SUPPLY. OUR NEW FAX#[phone], 1 tabs Oral BID Start Date: 04/16/15 Status: Ordered levothyroxine 125 mcg (0.125 mg) oral tablet See Instructions, TAKE ONE TABLET BY MOUTH ONCE DAILY, # 90 tabs, eRx: [place] [id number], TAKE ONE TABLET BY MOUTH ONCE DAILY Start Date: 06/05/15 Status: Ordered lisinopril 20 mg oral tablet 20 mg 1 tabs, Oral, BID, # 180 tabs, 3 Refill(s), Pharmacy: [place] [id number] Start Date: 02/13/15 Status: Ordered metFORMIN 1000 mg oral tablet 1 tabs, Oral, BID, # 180 tabs, 3 Refill(s), Pharmacy: [place] [address], 1 tabs Oral BID Start Date: 10/30/14 [...]
--- OUTSIDE RECORDS SUMMARY | 2016-12-11 08:36 | XMS REPORT | Referral Summary ---
Author Author [facility] Organization [facility] Address Unknown Phone Unavailable Care Team Providers Care Salesperson New Cars Name Role Phone Jason Marroquin Primary Care Physician [phone] Encounter Date(s): 06/13/15 - 06/13/15 [facility] [address] [address] Discharge Diagnosis: Severe obstructive sleep apnea Discharge [...] DAILY, # 90 tabs, 1 Refill(s), eRx: [place] [address], TAKE ONE-HALF TO ONE TABLET BY MOUTH ONCE DAILY Start Date: 12/21/14 Status: Ordered ATORVASTATIN 80MG TAB See Instructions, TAKE ONE-HALF TO ONE TABLET BY MOUTH ONCE DAILY, # 90 tabs, eRx: [place] [id number], TAKE ONE-HALF TO ONE TABLET BY MOUTH ONCE DAILY Start Date: 06/29/14 Status: Ordered glimepiride 2 mg oral tablet See Instructions, TAKE ONE TABLET BY MOUTH ONCE DAILY, # 30 tabs, 4 Refill(s), eRx: [place] [address], TAKE ONE TABLET BY MOUTH ONCE DAILY Start Date: 04/08/15 Status: Ordered Glucometer strips (DME) DME Item Contour test strips dx 250.00 3 mos supply Fasting and 2 hrs pp, See Instructions, # 1 Each, 0 Refill(s), Pharmacy: [place] [address], Contour test strips; dx 250.00; 3 mos supply; Fasting and 2 hrs pp, Supply Start Date: 10/30/14 Status: Ordered LaMICtal 150 mg oral tablet 150 mg 1 tabs, Oral, BID, # 180 tabs, 3 Refill(s), Pharmacy: [place] [address], PLEASE USE THIS RX FOR 90 DAY SUPPLY. OUR NEW FAX#[phone], 1 tabs Oral BID Start Date: 04/16/15 Status: Ordered levothyroxine 125 mcg (0.125 mg) oral tablet See Instructions, TAKE ONE TABLET BY MOUTH ONCE DAILY, # 90 tabs, eRx: [place] [id number], TAKE ONE TABLET BY MOUTH ONCE DAILY Start Date: 06/05/15 Status: Ordered lisinopril 20 mg oral tablet 20 mg 1 tabs, Oral, BID, # 180 tabs, 3 Refill(s), Pharmacy: [place] [address] Start Date: 02/13/15 Status: Ordered metFORMIN 1000 mg oral tablet 1 tabs, Oral, BID, # 180 tabs, 3 Refill(s), Pharmacy: [place] [address], 1 tabs Oral BID Start Date: 10/30/14 [...] pressure withexcellent adherence to therapy. Order to [facility] [[email or web address] for supplies. He does meet Medicare requirements [...]
--- OUTSIDE RECORDS SUMMARY | 2016-12-11 08:36 | XMS REPORT | Referral Summary ---
Author Organization Unknown Address Unknown Phone Unavailable Care Team Providers Care Fern Cutter Name Role Phone Esperanza Scherer JR Primary Care Physician [phone] Encounter [facility] [id number] Date(s): 10/30/14 - 10/30/14 [facility] [address] [place] [address] [place] [address]- Discharge Diagnosis: Obesity Discharge Diagnosis: Benign essential hypertension Discharge Diagnosis: Diabetes Discharge Diagnosis: Dyslipidemia Discharge Diagnosis: Seizure Discharge Disposition: Home or Self Care Attending Physician: Edwige Wang APRN Admitting Physician: Edwige Wang APRN Vital Signs Most recent to 1 oldest [Reference Range]: Temperature Tympanic 36 degC [36.6-38.1 degC] *LOW* (10/30/14 10:57 AM) Blood Pressure 122/86 mmHg [90-140/60-90 mmHg] (10/30/14 10:57 AM) Problem List Condition Effective Dates Status [...] MOUTH ONCE DAILY, # 90 tabs, eRx: [facility], TAKE ONE-HALF TO ONE TABLET BY MOUTH ONCE DAILY Special Instructions: TAKE ONE-HALF TO ONE TABLET BY MOUTH ONCE DAILY Start Date: 06/29/14 Status: Ordered Glucometer strips (DME) DME Item Contour test strips dx 250.00 3 mos supply Fasting and 2 hrs pp, See Instructions, # 1 Each, 0 Refill(s), Pharmacy: [place] [address], Contour test strips; dx 250.00; 3 mos supply; Fasting and 2 hrs pp, Supply Special Instructions: Contour test strips dx 250.00 3 mos supply Fasting and 2 hrs pp Start Date: 10/30/14 Status: Ordered Invokana 100 mg oral tablet 1 tabs, Oral, Daily, # 90 tabs, 3 Refill(s), Pharmacy: [place] [address], 1 tabs Oral Daily Start Date: 10/30/14 Status: Ordered levothyroxine 125 mcg (0.125 mg) oral tablet See Instructions, TAKE ONE TABLET BY MOUTH ONCE DAILY, # 90 tabs, 2 Refill(s), eRx: [place] [id number], TAKE ONE TABLET BY MOUTH ONCE DAILY Special Instructions: TAKE ONE TABLET BY MOUTH ONCE DAILY Start Date: 09/19/14 Status: Ordered lisinopril 20 mg oral tablet See Instructions, TAKE ONE TABLET BY MOUTH EVERY DAY, # 90 tabs, 1 Refill(s), eRx: [place] [id number], TAKE ONE TABLET BY MOUTH EVERY DAY Special Instructions: TAKE ONE TABLET BY MOUTH EVERY DAY Start Date: 08/10/14 Status: Ordered metFORMIN 1000 mg oral tablet 1 tabs, Oral, BID, # 180 tabs, 3 Refill(s), Pharmacy: [place] [address], 1 tabs Oral BID Start Date: 10/30/14 Status: Ordered Viagra 100 mg oral tablet See Instructions, as needed for erectile dysfunction, 1/2 to 1 tab Oral Daily 1 hour before sexual activity, 0 Refill(s) Special Instructions: 1/2 to 1 tab Oral Daily 1 hour before sexual activity Start Date: 04/10/14 Status: Ordered Results No [...] Title: Ambulatory Patient Education Author: Edwige Wang COASTAL AND ESTUARY SPECIALIST Date: 10/30/14 Family Medicine Diabetes and Exercise Regular exercise is important and can help: Control blood glucose (sugar ). Decrease blood pressure. Control blood lipids (cholesterol, triglycerides ). Improve overall health. BENEFITS FROM EXERCISE Improved fitness. Improved flexibility. Improved endurance. Increased bone density. Weight control. Increased muscle strength. Decreased body fat. Improvement of the body's use of insulin, a hormone. Increased insulin sensitivity. Reduction of insulin needs. Reduced stress and tension. Helps you feel better. People with diabetes who add exercise to their lifestyle gain additional benefits, including: Weight loss. Reduced appetite. Improvement of the body's use of blood glucose. Decreased risk factors for heart disease: Lowering of cholesterol and triglycerides. Raising the level of good cholesterol (high-density lipoproteins, HDL ). Lowering blood sugar. Decreased blood pressure. TYPE 1 DIABETES AND EXERCISE Exercise will usually lower your blood glucose. If blood glucose is greater than 240 mg/dl, check urine ketones. If ketones are present, do not exercise. Location of the insulin injection sites may need to be adjusted with exercise. Avoid injecting insulin into areas of the body that will be exercised. For example, avoid injecting insulin into: The arms when playing tennis. The legs when jogging. For more information, discuss this with your caregiver. Keep a record of: Food intake. Type and amount of exercise. Expected peak times of insulin action. Blood glucose levels. Do this before, during, and after exercise. Review your records with your caregiver. This will help you to develop guidelines for adjusting food intake and insulin amounts. TYPE 2 DIABETES AND EXERCISE Regular physical activity can help control blood glucose. Exercise is important because it may: Increase the body's sensitivity to insulin. Improve blood glucose control. Exercise reduces the risk of heart disease. It decreases serum cholesterol and triglycerides. It also lowers blood pressure. Those who take insulin or oral hypoglycemic agents should watch for signs of hypoglycemia. These signs include dizziness, shaking, sweating, chills, and confusion. Body water is lost during exercise. It must be replaced. This will help to avoid loss of body fluids (dehydration ) or heat stroke. Be sure to talk to your caregiver before starting an exercise program to make sure it is safe for you. Remember, any activity is better than none. Document Released: 11/12/2004 Document Revised: 11/14/2012 Document Reviewed: [facility] Patient Information 2014 [employer]. No follow up information was provided. Extracted from: Title: Office Visit Note Author: Edwige Wang APRN Date: 10/30/14 Assessment/Plan Benign essential hypertension Continue same. Ordered: Office Visit Level 4 Est 37991 Diabetes Discussed hemoglobin A1c results. Diabetes uncontrolled. Increase metformin to thousand milligrams twice a day. Discuss other medication treatment options such as Victoza and Invokana. Adverse effects discussed.Purpose of medications were discussed. Patient would like to trial the Invokana. Samples provided. Prescription sent to see if it is affordable for him. Plan follow-up in 2 weeks with review of blood sugars at that time. Requested patient check blood sugars fasting and 2 hours postprandial. BMP in 2 weeks. Ordered: Basic Metabolic Panel Office Visit Level 4 Est 38076 Dyslipidemia Continue same. Ordered: Office Visit Level 4 Est 91586 Obesity Encouraged him to eat a healthy diet. Work on weight loss. Discussed the importance of lifestyle modification. Ordered: Office Visit Level 4 Est [address] Dumont's office. Spoke with the supervisor sound technician. Requested earlier appointment or Dr. Dr. Dumont recommends medication options /treatment for patient in the meantime. Reinforced the need to avoid driving. Patient voices understanding. Questions concerns were answered. Ordered: Office Visit Level 4 Est 56755 Orders: canagliflozin, 1 tabs, Oral, Daily, # 90 tabs, 3 Refill(s), Pharmacy: [facility], 1 tabs Oral Daily Durable Medical Equipment Rx, DME Item Contour test strips dx 250.00 3 mos supply Fasting and 2 hrs pp, See Instructions, # 1 Each, 0 Refill(s), Pharmacy: [facility], Contour test strips; dx 250.00; 3 mos supply; Fasting and 2 hrs pp, Supply metFORMIN, 1 tabs, Oral, BID, # 180 tabs, 3 Refill(s), Pharmacy: [facility], 1 tabs Oral BID Addendum I reviewed this chart, the patient's medical history, and the by [place] Resident's/COASTAL AND ESTUARY SPECIALIST's/PA/RN's/PharmD's documented findings, and concur with the assessment and Alessandro FONG plan as above. Esperanza WILKINSON, FAAFP on 30 October 2014 11:52:05 SALES SUPERVISOR
--- OUTSIDE RECORDS SUMMARY | 2016-12-11 08:36 | XMS REPORT | Referral Summary ---
Author Author [facility] Organization [facility] Address Unknown Phone Unavailable Care Team Providers Care Atomic Spectroscopist Name Role Phone Jason Marroquin Primary Care Physician [phone] Encounter Date(s): 06/13/15 - 06/13/15 [facility] [address] [address] Discharge Diagnosis: Severe obstructive sleep apnea [...] DAILY, # 90 tabs, 1 Refill(s), eRx: [place] [id number], TAKE ONE-HALF TO ONE TABLET BY MOUTH ONCE DAILY Start Date: 12/21/14 Status: Ordered ATORVASTATIN 80MG TAB See Instructions, TAKE ONE-HALF TO ONE TABLET BY MOUTH ONCE DAILY, # 90 tabs, eRx: [place] [id number], TAKE ONE-HALF TO ONE TABLET BY MOUTH ONCE DAILY Start Date: 06/29/14 Status: Ordered glimepiride 2 mg oral tablet See Instructions, TAKE ONE TABLET BY MOUTH ONCE DAILY, # 30 tabs, 4 Refill(s), eRx: [place] [address], TAKE ONE TABLET BY MOUTH ONCE DAILY Start Date: 04/08/15 Status: Ordered Glucometer strips (DME) DME Item Contour test strips dx 250.00 3 mos supply Fasting and 2 hrs pp, See Instructions, # 1 Each, 0 Refill(s), Pharmacy: [place] [address], Contour test strips; dx 250.00; 3 mos supply; Fasting and 2 hrs pp, Supply Start Date: 10/30/14 Status: Ordered LaMICtal 150 mg oral tablet 150 mg 1 tabs, Oral, BID, # 180 tabs, 3 Refill(s), Pharmacy: [place] [address], PLEASE USE THIS RX FOR 90 DAY SUPPLY. OUR NEW FAX#[phone], 1 tabs Oral BID Start Date: 04/16/15 Status: Ordered levothyroxine 125 mcg (0.125 mg) oral tablet See Instructions, TAKE ONE TABLET BY MOUTH ONCE DAILY, # 90 tabs, eRx: [place] [id number], TAKE ONE TABLET BY MOUTH ONCE DAILY Start Date: 06/05/15 Status: Ordered lisinopril 20 mg oral tablet 20 mg 1 tabs, Oral, BID, # 180 tabs, 3 Refill(s), Pharmacy: [place] [id number] Start Date: 02/13/15 Status: Ordered metFORMIN 1000 mg oral tablet 1 tabs, Oral, BID, # 180 tabs, 3 Refill(s), Pharmacy: [place] [address], 1 tabs Oral BID Start Date: 10/30/14 [...] pressure withexcellent adherence to therapy. Order to [facility] for supplies. He does meet Medicare requirements [...]
--- OUTSIDE RECORDS SUMMARY | 2016-12-11 08:36 | XMS REPORT | Referral Summary ---
Author Author [facility] Organization [facility] Address Unknown Phone Unavailable Care Team Providers Care Assistant Merchandise Manager Name Role Phone Jason Marroquin Primary Care Physician [phone] Encounter Date(s): 01/24/15 - 01/24/[address] [facility] [address] [facility] [address] [place], [place] [address] Discharge Diagnosis: Epilepsy Discharge Disposition: 01-Home [...] DAILY, # 90 tabs, 1 Refill(s), eRx: [facility] 2428, TAKE ONE-HALF TO ONE TABLET BY MOUTH ONCE DAILY Start Date: 12/21/14 Status: Ordered ATORVASTATIN 80MG TAB See Instructions, TAKE ONE-HALF TO ONE TABLET BY MOUTH ONCE DAILY, # 90 tabs, eRx: [facility], TAKE ONE-HALF TO ONE TABLET BY MOUTH ONCE DAILY Start Date: 06/29/14 Status: Ordered glimepiride 2 mg oral tablet See Instructions, TAKE ONE TABLET BY MOUTH ONCE DAILY, # 30 tabs, 4 Refill(s), eRx: [place] [address], TAKE ONE TABLET BY MOUTH ONCE DAILY Start Date: 04/08/15 Status: Ordered Glucometer strips (DME) DME Item Contour test strips dx 250.00 3 mos supply Fasting and 2 hrs pp, See Instructions, # 1 Each, 0 Refill(s), Pharmacy: [place] [address], Contour test strips; dx 250.00; 3 mos supply; Fasting and 2 hrs pp, Supply Start Date: 10/30/14 Status: Ordered LaMICtal 150 mg oral tablet 150 mg 1 tabs, Oral, BID, # 180 tabs, 3 Refill(s), Pharmacy: [place] [address], PLEASE USE THIS RX FOR 90 DAY SUPPLY. OUR NEW FAX#[phone], 1 tabs Oral BID Start Date: 04/16/15 Status: Ordered levothyroxine 125 mcg (0.125 mg) oral tablet See Instructions, TAKE ONE TABLET BY MOUTH ONCE DAILY, # 90 tabs, eRx: [place] [id number], TAKE ONE TABLET BY MOUTH ONCE DAILY Start Date: 06/05/15 Status: Ordered lisinopril 20 mg oral tablet 20 mg 1 tabs, Oral, BID, # 180 tabs, 3 Refill(s), Pharmacy: [place] [address] Start Date: 02/13/15 Status: Ordered metFORMIN 1000 mg oral tablet 1 tabs, Oral, BID, # 180 tabs, 3 Refill(s), Pharmacy: [place] [address], 1 tabs Oral BID Start Date: 10/30/14 [...]
--- OUTSIDE RECORDS SUMMARY | 2016-12-11 08:36 | XMS REPORT | Continuity of Care Document ---
Author Author [facility] Organization [facility] Address Unknown Phone Unavailable Support Name Relationship Address Phone MARLEEN RIVAS MD Caregiver [address] [place] [phone] ASTRID SENIOR MD Caregiver [address] [place] [place] [phone] PIERO LENTZ Next Of Kin [address] [place] [address] Insurance Providers Payer Name Policy Number Subscriber Name Relationship Medicare [id number] Jeff Lentz 20 Self [facility] [id number] Jeff Lentz 20 Self Advance Directives Directive Response Recorded Date/Time Advanced Directives Type DPOA for Healthcare 05/17/14 7:13am Problems Medical Problems Problem Onset Date Status Seizure Unknown Active Medications Medication Dose Route Sig Days/Qty Instructions Order Date Discontinued Date Status Metformin Hcl 500 Mg PO TWICE A DAY 08/20/11 Active Lovastatin 40 Mg PO BEDTIME 08/20/11 Active Lisinopril/Hydrochlorothiazide 1 Tab PO TWICE A DAY 08/20/11 Active Amlodipine Besylate 5 Mg PO DAILY 08/20/11 Active Levothyroxine Sodium 100 Mcg PO DAILY 08/20/11 Active Aspirin 81 Mg PO DAILY 08/20/11 Active Social History Social History Problem Response Recorded Date/Time Smoking Status Never smoker 05/17/2014 9:34am Hx Substance Use No 08/20/2011 10:46am Hx Alcohol Use No 05/17/2014 9:34am Hospital Discharge Instructions No hospital discharge instructions. Plan of Care No plan of care. Functional Status Query Response Date Recorded Physical Hygiene Self May 17, 2014 9:34am Disabilities None May 17, 2014 9:34am Devices Used None May 17, 2014 9:34am Dressing Self May 17, 2014 9:34am Ambulation Self May 17, 2014 9:34am Diet Self May 17, 2014 9:34am Mental Status Alert Oriented May 17, 2014 12:38pm Disabilities None May 17, 2014 9:34am Devices Used None May 17, 2014 9:34am Physical Hygiene Self May 17, 2014 9:34am Dressing Self May 17, 2014 9:34am Ambulation Self May 17, 2014 9:34am Diet Self May 17, 2014 9:34am Allergies, Adverse Reactions, Alerts Allergen Type Severity Reaction Status Last Updated No Known Drug Allergies Allergy Unknown Active 05/17/14 Immunizations Name Given Type Hx Influenza Vaccination Yes Historical Hx Pneumococcal Vaccination No Historical Hx Influenza Vaccination Yes Historical Vital Signs Acute Vital Signs Vital Response Date/Time Temperature (Fahrenheit) 98.2 deg F (96.8 - 99.1) Temperature (Calculated Celsius) 36.20149 degrees C (36.0 - 37.3) Pulse Rate (adult) 72 bpm (60 - 100) Respiratory Rate 16 breaths/min (10 - 20) O2 Sat by Pulse Oximetry 99 % (90 - 100) Blood Pressure 114/67 mm Hg Height 5 ft 11 in Weight 195 lb Body Mass Index 27.0 kg/m^2 Results Test Source Date Result Interp. Ref. Range Comments Prolactin May 17, 2014 6:45am 46.5 NG/ML - Normal Female (Non- ): 3.0-18.6 ng/ml;Males: 3.7-17.9 ng/ml Alcohol, Quantitative May 17, 2014 6:45am <10 MG/DL - Salicylates Level May 17, 2014 6:45am < 1.0 MG/DL L 2-20 Acetaminophen Level May 17, 2014 6:45am < 10 UG/ML L 10-30 TOXIC <4 HR POST INGESTION: >150 MG/L;TOXIC <12 HR POST INGESTION: >50 MG/L Urinalysis Comment May 17, 2014 7:45am Microscopic not ind. - Has specimen been collected/obtained? Y Urine Blood May 17, 2014 7:45am Negative - Has specimen been collected/obtained? Y Urine Bilirubin May 17, 2014 7:45am Negative - Has specimen been collected/obtained? Y Urine Urobilinogen May 17, 2014 7:45am 0.2 EU/DL - Has specimen been collected/obtained? Y Urine Ketones May 17, 2014 7:45am Negative - Has specimen been collected/obtained? Y Urine Glucose (UA) May 17, 2014 7:45am Negative - Has specimen been collected/obtained? Y Urine Protein May 17, 2014 7:45am Trace H - Has specimen been collected/obtained? Y Urine Nitrite May 17, 2014 7:45am Negative - Has specimen been collected/obtained? Y Urine Leukocyte Esterase May 17, 2014 7:45am Negative - Has specimen been collected/obtained? Y Urine pH May 17, 2014 7:45am 5.5 - Has specimen been collected/ obtained? Y Urine Specific [place] May 17, 2014 7:45am >=1.030 H - Has specimen been collected/obtained? Y Urine Turbidity May 17, 2014 7:45am Clear - Has specimen been collected/obtained? Y Urine Color May 17, 2014 7:45am Yellow - Has specimen been collected/obtained? Y Urine Collection Type May 17, 2014 7:45am Voided-not cc-midstr - Has specimen been collected/obtained? Y Alanine Aminotransferase (ALT/SGPT) May 17, 2014 6:45am 41 U/L N 21-72 Aspartate Amino Transf (AST/SGOT) May 17, 2014 6:45am 30 U/L N 17- 59 Albumin/Globulin Ratio May 17, 2014 6:45am 1.5 RATIO N 1.1-2.2 Globulin May 17, 2014 6:45am 2.9 G/DL N 2.4-3.6 Albumin May 17, 2014 6:45am 4.4 G/DL N 3.5-5.0 Total Protein May 17, 2014 6:45am 7.3 G/DL N 6.3-8.2 Alkaline Phosphatase May 17, 2014 6:45am 106 U/L N 38-126 Total Bilirubin May 17, 2014 6:45am 0.50 MG/DL N 0.20-1.30 Calcium Level May 17, 2014 6:45am 9.5 MG/DL N 8.4-10.2 Calculated Osmolality May 17, 2014 6:45am 281 MOSM/KG H 261-280 Glucose Level May 17, 2014 6:45am 209 MG/DL H 75-110 Glomerular Filtration Rate Calc May 17, 2014 6:45am 75 - BUN/Creatinine Ratio May 17, 2014 6:45am 18 RATIO N 6-26 Creatinine May 17, 2014 6:45am 1.0 MG/DL N 0.8-1.5 Blood Urea Nitrogen May 17, 2014 6:45am 18.0 MG/DL N 9-20 Anion Gap May 17, 2014 6:45am 19 MEQ/L H 5-15 Carbon Dioxide Level May 17, 2014 6:45am 21 MEQ/L L 22-30 Chloride Level May 17, 2014 6:45am 102 MEQ/L N 98-107 Potassium Level May 17, 2014 6:45am 4.4 MEQ/L N 3.6-5 Sodium Level May 17, 2014 6:45am 142 MEQ/L N 134-144 Turbidity May 17, 2014 6:45am < 20 0-20 Chemistry Specimen Hemolysis May 17, 2014 6:45am < 15 0-25 0-25 : No Hemolysis.26-70: Slight Hemolysis - can falsely elevate K and Urine Protein. 71-285: Moderate Hemolysis - can falsely elevate K, Troponin I, CA 19-9, PTH, CSF GLucose, and Urine Protein, and can falsely decrease Phenytoin. 286-999: Gross Hemolysis - can falsely elevate K, Troponin I, CA 19-9, PTH, CSF Glucose, and Urine Protine, and can falsely decrease Phenytoin. Recommend specimen recollection. Icterus Index May 17, 2014 6:45am < 2 0-7 Immature Granulocyte # (Auto) May 17, 2014 6:45am 0.03 T/MM3 N 0.00-0.03 Basophils # (Auto) May 17, 2014 6:45am 0.1 T/MM3 N 0-0.2 Eosinophils # (Auto) May 17, 2014 6:45am 0.2 T/MM3 N 0-0.5 Monocytes # (Auto) May 17, 2014 6:45am 0.8 T/MM3 N 0-0.8 Lymphocytes # (Auto) May 17, 2014 6:45am 3.0 T/MM3 N 1-4.8 Neutrophils # (Auto) May 17, 2014 6:45am 5.6 T/MM3 N 1.8-7.7 Immature Granulocyte % (Auto) May 17, 2014 6:45am 0.3 % N 0.0-0.5 Basophils (%) (Auto) May 17, 2014 6:45am 0.9 % N 0-2 Eosinophils (%) (Auto) May 17, 2014 6:45am 2.4 % N 0-4 Monocytes (%) (Auto) May 17, 2014 6:45am 8.3 % N 0-9.0 Lymphocytes (%) (Auto) May 17, 2014 6:45am 30.9 % N 23-45 Neutrophils (%) (Auto) May 17, 2014 6:45am 57.2 % N 33-66 Mean Platelet Volume May 17, 2014 6:45am 11.2 UM3 N 9.4-12.4 Platelet Count May 17, 2014 6:45am 222 T/MM3 N 130-400 RDW Standard Deviation May 17, 2014 6:45am 44.3 FL N 36.9-50.2 Mean Corpuscular Hemoglobin Concent May 17, 2014 6:45am 32.4 GM/DL N 31-37 Mean Corpuscular Hemoglobin May 17, 2014 6:45am 31.0 UUG N 26-34 Mean Corpuscular Volume May 17, 2014 6:45am 95.5 UM3 N 80-100 Hematocrit May 17, 2014 6:45am 44.4 % N 41-53 Hemoglobin May 17, 2014 6:45am 14.4 GM/DL N 13.5-17.5 Red Blood Count May 17, 2014 6:45am 4.65 M/MM3 N 4.50-5.90 White Blood Count May 17, 2014 6:45am 9.8 T/MM3 N 4.5-11.0 Glucometer May 17, 2014 7:43am 206 mg/dL H 75-110 Name: JEFF LENTZ Unit #: [id number] : 1945 Sex: M Loc / [facility] [place]: ED DOS: 05/17/14 Signed Report #: [id number] DIAGNOSTIC IMAGING REPORT TYPE OF EXAM: MRI BRAIN W/WO CONTRAST Dictated By: MALLY NICE MD INDICATION: ITS.REASON: NEW ONSET SEIZURE MRI BRAIN W/WO CONTRAST: Comparison: Head CT from today Technique: Multiplanar, multisequence, MR imaging of the head with and without contrast was acquired. MRA imaging of the head was acquired. Maximum intensity projection (MIP) reformatted images were produced. Contrast: 9 mL of Gadavist Findings: MRI head: A 1.5-cm partially calcified lesion seen by CT is again noted on MRI. This represents a T1/T2 hypointense central portion corresponding to the calcifications with some surrounding T2/ flair hyperintensity. There is no postcontrast enhancement within this region and this does again communicate with the posterior horn of the left lateral ventricle. There is some overlying cortical thinning but no true mass effect. Additionally there are scattered T2/ flair hyperintense white matter lesions scattered throughout the frontoparietal white matter which showed no postcontrast enhancement. No enhancing masses. The ventricles are of normal size, shape, and contour for the patient's age. The brain stem, cerebellum, and cerebral hemispheres otherwise have a normal morphologic appearance as well as MR signal intensity on all pulse sequences. Following intravenous administration of contrast, no areas of abnormal enhancement are evident. There are no areas of restricted diffusion on diffusion weighted imaging to suggest an acute infarct. There is no evidence of an intracranial mass lesion, intracranial hemorrhage, or hydrocephalus. The visualized portions of the orbits , calvarium, paranasal sinuses, and skull base demonstrate no significant abnormality. MRA head: The intracranial portions of the vertebral arteries, internal carotid arteries , and their major branches show no significant stenosis or other vascular anomaly. No aneurysms or vascular malformations are evident. Prominent posterior communicating artery on the right is noted incidentally. Impression: 1. MRI head: Partially calcified lesion in the left parietal lobe may represent sequela of old trauma, hemorrhage or infarct with dystrophic calcification and encephalomalacia. This could also be congenital. White matter lesions in advance of expected for the patient's age could represent advanced chronic microvascular ischemia or a number of other causes including postinfectious/ postinflammatory etiologies, demyelinating disease and atypical infections. Malignancy or and metastasis are unlikely given the lack of enhancement or surrounding edema. No acute infarct or enhancing mass seen. 2. MRA head: No evidence of aneurysm or flow-limiting arterial stenosis. . Procedures No known history of procedures. Encounters Encounter Location Date/Time Registered Emergency Room [facility] 05/17/14 6:45am Recent Diagnosis
--- OUTSIDE RECORDS SUMMARY | 2016-12-11 08:36 | XMS REPORT | Continuity of Care Document ---
Author Author Myriam Masters RN Ambulatory Address [facility] [place] [address] Phone Unavailable Care Team Providers Care Thread Milling Machine Set Up Operator Name Role Phone Alessandro Scherer MIRIAM Unavailable Payers Payer name Insurance type Covered republican ID Authorization(s) Unknown Problems Condition Effective Dates (start - stop) Clinical Status DM w/o complication type II, uncontrolled - *Chronic Obesity - *Chronic Other and unspecified hyperlipidemia - *Chronic Hypertension, Benign - *Chronic Hypothyroidism - *Chronic Obesity - Chronic Other and unspecified hyperlipidemia - Chronic Hypertension, Benign - Chronic Hypothyroidism - Chronic Nondependent hallucinogen abuse, unspecified use - *Chronic HX-LARYNGEAL MALIGNANCY - HISTORY OF TOBACCO USE - HYPOTHYROIDISM NOS - DMII WO CMP NT ST UNCNTR - MIXED HYPERLIPIDEMIA - OVERWEIGHT - HALLUCINOG ABUSE-UNSPEC - BENIGN HYPERTENSION - 470 - DEVIATED NASAL SEPTUM - HEREDITARY EDEMA OF LEGS - POSTNASAL DRIP - ED (erectile dysfunction) - Episodic Diabetes Mellitus Type 2, Uncomplicated - *Worse Other and unspecified hyperlipidemia - *Chronic Obesity - *Chronic Hypertension, Benign - *Chronic Sleep Apnea, Obstructive - *Chronic Tobacco Abuse, History of - *Resolved Diabetes Mellitus Type 2, Uncomplicated - *Chronic Other and unspecified hyperlipidemia - *Chronic Hypothyroidism - *Chronic Hypertension, Benign - *Chronic Diabetes Mellitus Type 2, Uncomplicated - Chronic Other and unspecified hyperlipidemia - Chronic Hypothyroidism - Chronic Hypertension, Benign - Chronic Backache - *Acute Hypertension, Benign - *Fair Control Diabetes Mellitus Type 2, Uncomplicated - Chronic Other and unspecified hyperlipidemia - Chronic Hypothyroidism - Chronic Obesity - Chronic Personal history of malignant neoplasm of larynx - Chronic Influenza Vaccine - Hereditary edema of legs - Chronic Deviated nasal septum - Chronic POSTNASAL DRIP - Chronic Nondependent hallucinogen abuse, unspecified use - Chronic Tobacco Abuse, History of - Chronic Sleep Apnea, Obstructive - Uncertain Diabetes Mellitus Type 2, Uncomplicated - *Chronic Type II diabetes mellitus, uncontrolled - *Worse Other and unspecified hyperlipidemia - *Chronic Hypothyroidism - *Chronic Obesity - *Chronic Obesity - Improved Other and unspecified hyperlipidemia - Chronic Hypothyroidism - Chronic Sleep Apnea, Obstructive - *Controlled Family History Family Member Diagnosis Age At Onset Status Sister (Unknown) Diabetes Yes Mother (Unknown) Hypertension Yes Father (Unknown) Diabetes Yes Brother (Unknown) Diabetes Yes Sister (Unknown) Depression Yes Mother (Unknown) Obesity Yes Brother (Unknown) Rheumatic Fever Yes Social History Social History Element Description Quantity Unknown Allergies, Adverse Reactions, Alerts Substance Reaction Severity Status Unknown Medications Medication Instructions Dosage Effective Dates (start - stop) Status atorvastatin 80 mg tablet take 1 tablet (80MG) by oral route every day 80 MG - Active aspirin 81 mg chewable tablet TAKE ONE TAB PO QD - Active Levothroid 125 mcg tablet Take 1 tablet by mouth every day. - Active lisinopril 20 mg tablet take 1 tablet (20MG) by oral route every day 20 MG - Active metformin 500 mg tablet Take 1 tablet by mouth twice a day. - Active Viagra 100 mg tablet take 1/2 to 1 tablet (100MG) by oral route every day as needed approximately 1 hour before sexual activity - Active Immunizations Vaccine Date Status Comments Flu (split) (3 yrs or older) completed Flu (split) (3 yrs or older) completed Tdap completed - Completed reason: previously given pneumo (2 yrs or older) (PPV23) completed - Completed reason: previously given Results Test Name Date and Time Measure Units Reference Range Abnormal Flag Comments Unknown Vital Signs Date / Time: Height Weight Pulse Rate Blood Pressure Temperature /13:52:00 71.00 in 209.00 lbs 80 /min 128/78 mm[Hg] 97.8 F Procedures Procedure Date Unknown Encounters Encounter Location Date Patient Visit [facility] Patient Visit Conversion Patient Visit [facility] Patient Visit [facility] Patient Visit [facility] Patient Visit [facility] Patient Visit [facility] Patient Visit [facility] Patient Visit [facility] Advance Directives Directive Effective Date Unknown
--- OUTSIDE RECORDS SUMMARY | 2016-12-11 08:36 | XMS REPORT | Referral Summary ---
Author Author [facility] Organization [facility] Address Unknown Phone Unavailable Care Team Providers Care Central Processing Tech Name Role Phone Curtis Franz Primary Care Physician [phone] Encounter Date(s): 08/15/15 - 08/15/15 [facility], [address] [place] [address] Discharge Diagnosis: Hypothyroidism Discharge Diagnosis: Microalbuminuric Diabetic Nephropathy Discharge Diagnosis: Diabetes Discharge Diagnosis: Need for vaccination Discharge Diagnosis: Severe obstructive sleep apnea Discharge Diagnosis: Benign essential hypertension Discharge Diagnosis: Dyslipidemia Discharge Disposition: 01-Home or Self Care Attending Physician: Edwige Wang APRN Admitting Physician: Edwige Wang APRN Vital Signs Most recent to 1 oldest [Reference Range]: Temperature Tympanic 36.5 degC [36.6-38.1 degC] *LOW* (08/15/15 10:31 AM) Peripheral Pulse 76 bpm Rate [60-100 bpm] (08/15/15 10:31 AM) Blood Pressure 158/98 mmHg [90-140/60-90 mmHg] *HI* (08/15/15 10:31 AM) Problem List Condition Effective Dates Status [...] Daily, # 90 tabs, 3 Refill(s), Pharmacy: [id number], 1 tabs Oral Daily Start Date: 08/15/15 Status: Ordered aspirin 81 mg oral tablet, chewable 1 tabs, Oral, Daily, 0 Refill(s) Start Date: 04/10/14 Status: Ordered atorvastatin 80 mg oral tablet See Instructions, TAKE ONE-HALF TO ONE TABLET BY MOUTH ONCE DAILY, # 90 tabs, 1 Refill(s), eRx: [facility] 242, TAKE ONE-HALF TO ONE TABLET BY MOUTH ONCE DAILY Start Date: 12/21/14 Status: Ordered ATORVASTATIN 80MG TAB See Instructions, TAKE ONE-HALF TO ONE TABLET BY MOUTH ONCE DAILY, # 90 tabs, eRx: [facility] 2428, TAKE ONE-HALF TO ONE TABLET BY MOUTH ONCE DAILY Start Date: 06/29/14 Status: Ordered glimepiride 2 mg oral tablet See Instructions, TAKE ONE TABLET BY MOUTH ONCE DAILY, # 90 tabs, 3 Refill(s), Pharmacy: [facility] [id number], TAKE ONE TABLET BY MOUTH ONCE DAILY Start Date: 08/15/15 Status: Ordered LaMICtal 150 mg oral tablet 150 mg 1 tabs, Oral, BID, # 180 tabs, 3 Refill(s), Pharmacy: [facility] [id number], PLEASE USE THIS RX FOR 90 DAY SUPPLY. OUR NEW FAX#[phone], 1 tabs Oral BID Start Date: 04/16/15 Status: Ordered levothyroxine 125 mcg (0.125 mg) oral tablet See Instructions, TAKE ONE TABLET BY MOUTH ONCE DAILY, # 90 tabs, eRx: [facility] 2428, TAKE ONE TABLET BY MOUTH ONCE DAILY Start Date: 06/05/15 Status: Ordered lisinopril 20 mg oral tablet 20 mg 1 tabs, Oral, BID, # 180 tabs, 3 Refill(s), Pharmacy: [facility] 2428 Start Date: 02/13/15 Status: Ordered metFORMIN 1000 mg oral tablet 1 tabs, Oral, BID, # 180 tabs, 3 Refill(s), Pharmacy: [facility], 1 tabs Oral BID Start Date: [...] Title: Office Visit Note-CDM Author: Edwige Wang DIRECTOR [employer] Date: Assessment/Plan Benign essential hypertension Add amlodipine 5 mg daily. Continue to monitor blood pressures. Goal blood pressures less than 140/90. Ordered: Comprehensive Metabolic Panel Office Visit Level 4 Est 46104 Diabetes CDM report card completed and reviewed with patient. Last labs reviewed with patient. Recommendations discussed. Copy provided. Plan recheck in 3 months with fasting lipids, CMP and hemoglobin A1c prior to that visit. continue current medications patient did make a commitment to work on losing 10 pounds over the next 3 months.. we did discuss adding Victoza or invokana. These are not affordable for him. Ordered: Hemoglobin A1c Office Visit Level 4 Est 15947 Dyslipidemia Continue same. Ordered: Lipid Panel Office Visit Level 4 Est 63853 Hypothyroidism Continue same. Microalbuminuric Diabetic Nephropathy We will recheck this in 3 months. If getting worse we'll consider renal sonogram. Ordered: Albumin/Creatinine Ratio, Urine Hemoglobin A1c Office Visit Level 4 Est 42710 Need for vaccination Counseled on Prevnar 13. Given by nursing. Severe obstructive sleep apnea Continue CPAP. Patient compliant. Orders: amLODIPine, 5 mg 1 tabs, Oral, Daily, # 90 tabs, 3 Refill(s), Pharmacy : [facility], 1 tabs Oral Daily glimepiride, See Instructions, TAKE ONE TABLET BY MOUTH ONCE DAILY, # 90 tabs , 3 Refill(s), Pharmacy: [id number], TAKE ONE TABLET BY MOUTH ONCE DAILY
--- OUTSIDE RECORDS SUMMARY | 2016-12-11 08:36 | XMS REPORT | Referral Summary ---
Author Author [facility] Organization [facility] Address Unknown Phone Unavailable Care Team Providers Care Compensation Consulting Manager Name Role Phone Curtis Franz Primary Care Physician [phone] Encounter Date(s): 06/13/15 - 06/13/15 [facility] [address], [facility] [address] [place], [place] [address] Discharge Diagnosis: Severe obstructive sleep [...] Daily, # 90 tabs, 3 Refill(s), Pharmacy: [facility] [id number], 1 tabs Oral Daily Start Date: 08/15/15 Status: Ordered aspirin 81 mg oral tablet, chewable 1 tabs, Oral, Daily, 0 Refill(s) Start Date: 04/10/14 Status: Ordered atorvastatin 80 mg oral tablet See Instructions, TAKE ONE-HALF TO ONE TABLET BY MOUTH ONCE DAILY, # 90 tabs, 2 Refill(s), eRx: [facility] [id number], TAKE ONE-HALF TO ONE TABLET BY MOUTH ONCE DAILY Start Date: 12/23/15 Status: Ordered ATORVASTATIN 80MG TAB See Instructions, TAKE ONE-HALF TO ONE TABLET BY MOUTH ONCE DAILY, # 90 tabs, eRx: [facility] [id number], TAKE ONE-HALF TO ONE TABLET BY MOUTH ONCE DAILY Start Date: 06/29/14 Status: Ordered glimepiride 2 mg oral tablet See Instructions, TAKE ONE TABLET BY MOUTH ONCE DAILY, # 90 tabs, 3 Refill(s), Pharmacy: [facility] [id number], TAKE ONE TABLET BY MOUTH ONCE DAILY Start Date: 08/15/15 Status: Ordered LaMICtal 150 mg oral tablet 150 mg 1 tabs, Oral, BID, # 180 tabs, 3 Refill(s), Pharmacy: [facility] [id number], PLEASE USE THIS RX FOR 90 DAY SUPPLY. OUR NEW FAX#[phone], 1 tabs Oral BID Start Date: 04/16/15 Status: Ordered levothyroxine 125 mcg (0.125 mg) oral tablet See Instructions, TAKE ONE TABLET BY MOUTH ONCE DAILY, # 90 tabs, 1 Refill(s), eRx: [facility] [id number], TAKE ONE TABLET BY MOUTH ONCE DAILY Start Date: 09/05/15 Status: Ordered lisinopril 20 mg oral tablet 20 mg 1 tabs, Oral, BID, # 180 tabs, 3 Refill(s), Pharmacy: [facility] [id number] Start Date: 02/13/15 Status: Ordered metFORMIN 1000 mg oral tablet See Instructions, TAKE ONE TABLET BY MOUTH TWICE DAILY, # 180 tabs, 1 Refill(s) , eRx: [facility] [id number], TAKE ONE TABLET BY MOUTH TWICE DAILY Start Date: 11/11/15 Status: Ordered Results No data available for [...] pressure withexcellent adherence to therapy. Order to [facility] for supplies. He does meet Medicare [...]
--- OUTSIDE RECORDS SUMMARY | 2016-12-11 08:36 | XMS REPORT | Referral Summary ---
Author Author [facility] Organization [facility] Address Unknown Phone Unavailable Care Team Providers Care Tunnel Elastic Operator Lockstitch Name Role Phone Jason Marroquin Primary Care Physician [phone] Encounter Date(s): 06/13/15 - 06/13/15 [facility] [address] [address] [place] Discharge Diagnosis: Severe obstructive sleep apnea Discharge Disposition: 01-Home or Self Care Attending Physician: Kalra Alexander Admitting Physician: Karla Alexander Vital Signs [...] DAILY, # 90 tabs, 1 Refill(s), eRx: [place] [id number], TAKE ONE-HALF TO ONE TABLET BY MOUTH ONCE DAILY Start Date: 12/21/14 Status: Ordered ATORVASTATIN 80MG TAB See Instructions, TAKE ONE-HALF TO ONE TABLET BY MOUTH ONCE DAILY, # 90 tabs, eRx: [place] [id number], TAKE ONE-HALF TO ONE TABLET BY MOUTH ONCE DAILY Start Date: 06/29/14 Status: Ordered glimepiride 2 mg oral tablet See Instructions, TAKE ONE TABLET BY MOUTH ONCE DAILY, # 30 tabs, 4 Refill(s), eRx: [place] [address], TAKE ONE TABLET BY MOUTH ONCE DAILY Start Date: 04/08/15 Status: Ordered Glucometer strips (DME) DME Item Contour test strips dx 250.00 3 mos supply Fasting and 2 hrs pp, See Instructions, # 1 Each, 0 Refill(s), Pharmacy: [place] [address], Contour test strips; dx 250.00; 3 mos supply; Fasting and 2 hrs pp, Supply Start Date: 10/30/14 Status: Ordered LaMICtal 150 mg oral tablet 150 mg 1 tabs, Oral, BID, # 180 tabs, 3 Refill(s), Pharmacy: [place] [address], PLEASE USE THIS RX FOR 90 DAY SUPPLY. OUR NEW FAX#[phone], 1 tabs Oral BID Start Date: 04/16/15 Status: Ordered levothyroxine 125 mcg (0.125 mg) oral tablet See Instructions, TAKE ONE TABLET BY MOUTH ONCE DAILY, # 90 tabs, eRx: [place] [id number], TAKE ONE TABLET BY MOUTH ONCE DAILY Start Date: 06/05/15 Status: Ordered lisinopril 20 mg oral tablet 20 mg 1 tabs, Oral, BID, # 180 tabs, 3 Refill(s), Pharmacy: [place] [address] Start Date: 02/13/15 Status: Ordered metFORMIN 1000 mg oral tablet 1 tabs, Oral, BID, # 180 tabs, 3 Refill(s), Pharmacy: [place] [address], 1 tabs Oral BID Start Date: 10/30/14 [...] pressure withexcellent adherence to therapy. Order to [facility] for supplies. He does meet Medicare [...]
--- OUTSIDE RECORDS SUMMARY | 2016-12-11 08:36 | XMS REPORT | Referral Summary ---
Author Author [facility], [facility] Organization [facility] Address Unknown Phone Unavailable Care Team Providers Care Time Checker Name Role Phone Jason Marroquin Primary Care Physician [phone] Encounter Date(s): 02/13/15 - 02/13/15 [facility] [place], [address] [place] [address] Discharge Diagnosis: Diabetes Discharge Diagnosis: Benign essential [...] 90 tabs, 1 Refill(s), eRx: [facility], TAKE ONE-HALF TO ONE TABLET BY MOUTH ONCE DAILY Start Date: 12/21/14 Status: Ordered ATORVASTATIN 80MG TAB See Instructions, TAKE ONE-HALF TO ONE TABLET BY MOUTH ONCE DAILY, # 90 tabs, eRx: [facility] 2428, TAKE ONE-HALF TO ONE TABLET BY MOUTH ONCE DAILY Start Date: 06/29/14 Status: Ordered glimepiride 2 mg oral tablet See Instructions, TAKE ONE TABLET BY MOUTH ONCE DAILY, # 30 tabs, 4 Refill(s), eRx: [facility] 2428, TAKE ONE TABLET BY MOUTH ONCE DAILY Start Date: 04/08/15 Status: Ordered Glucometer strips (DME) DME Item Contour test strips dx 250.00 3 mos supply Fasting and 2 hrs pp, See Instructions, # 1 Each, 0 Refill(s), Pharmacy: [place] [address], Contour test strips; dx 250.00; 3 mos supply; Fasting and 2 hrs pp, Supply Start Date: 10/30/14 Status: Ordered LaMICtal 150 mg oral tablet 150 mg 1 tabs, Oral, BID, # 180 tabs, 3 Refill(s), Pharmacy: [place] [address], PLEASE USE THIS RX FOR 90 DAY SUPPLY. OUR NEW FAX#[phone], 1 tabs Oral BID Start Date: 04/16/15 Status: Ordered levothyroxine 125 mcg (0.125 mg) oral tablet See Instructions, TAKE ONE TABLET BY MOUTH ONCE DAILY, # 90 tabs, eRx: [facility] 2428, TAKE ONE TABLET BY MOUTH ONCE DAILY Start Date: 06/05/15 Status: Ordered lisinopril 20 mg oral tablet 20 mg 1 tabs, Oral, BID, # 180 tabs, 3 Refill(s), Pharmacy: [place] [address] Start Date: 02/13/15 Status: Ordered metFORMIN 1000 mg oral tablet 1 tabs, Oral, BID, # 180 tabs, 3 Refill(s), Pharmacy: [place] [id number], 1 tabs Oral BID Start Date: 10/30/14 [...] Title: Office Visit Note-CDM Author: Edwige Wang DOCTOR OF MEDICINE Date: 02/13/15 Assessment/Plan Benign essential hypertension Increase lisinopril to 20 mg twice a day. Monitor blood pressures. Goal is less than 140/90. He is to call me if blood pressures do not improve. Plan recheck in 6 months. Ordered: Office Visit Level 4 Est 84921 Diabetes Pleased with current level of control. [...] Hemoglobin A1c Office Visit Level 4 Est 90543 Dyslipidemia Continue same. Ordered: Lipid Panel Office Visit Level 4 Est 28581 Ear lobe laceration Cauterized with silver nitrate. Bleeding stopped. Ordered: Office Visit Level 4 Est 55242 Hypothyroidism Recheck TSH in 6 months. Ordered: Office Visit Level 4 Est 23642 TSH with Reflex Free T4 Orders: lisinopril, 20 mg 1 tabs, Oral, BID, # 180 tabs, 3 Refill(s), Pharmacy : [id number]
--- OUTSIDE RECORDS SUMMARY | 2016-12-11 08:36 | XMS REPORT | Referral Summary ---
Author Author [facility] Organization [facility] Address Unknown Phone Unavailable Care Team Providers Care Financial Analysis Manager Name Role Phone Curtis Franz Primary Care Physician [phone] Encounter VC Date(s): 01/22/16 - 01/22/[address] [address] [facility] [address] [facility] [address] [place], [place] [address] Discharge Diagnosis: Epilepsy Discharge Disposition: 01-Home or Self Care Attending Physician: Jacque Dumont MD Vital Signs Most recent to 1 oldest [Reference Range]: Blood Pressure 160/99 mmHg [90-140/60-90 mmHg] *HI* (01/22/16 3:47 PM) Problem List Condition Effective Dates Status [...] Daily, # 90 tabs, 3 Refill(s), Pharmacy: [id number], 1 tabs Oral Daily Start Date: 08/15/15 Status: Ordered aspirin 81 mg oral tablet, chewable 1 tabs, Oral, Daily, 0 Refill(s) Start Date: 04/10/14 Status: Ordered atorvastatin 80 mg oral tablet See Instructions, TAKE ONE-HALF TO ONE TABLET BY MOUTH ONCE DAILY, # 90 tabs, 2 Refill(s), eRx: [facility] 2428, TAKE ONE-HALF TO ONE TABLET BY MOUTH ONCE DAILY Start Date: 12/23/15 Status: Ordered ATORVASTATIN 80MG TAB See Instructions, TAKE ONE-HALF TO ONE TABLET BY MOUTH ONCE DAILY, # 90 tabs, eRx: [facility] 2428, TAKE ONE-HALF TO ONE TABLET BY MOUTH ONCE DAILY Start Date: 06/29/14 Status: Ordered glimepiride 2 mg oral tablet See Instructions, TAKE ONE TABLET BY MOUTH ONCE DAILY, # 90 tabs, 3 Refill(s), Pharmacy: [facility] 242, TAKE ONE TABLET BY MOUTH ONCE DAILY Start Date: 08/15/15 Status: Ordered LaMICtal 150 mg oral tablet 150 mg 1 tabs, Oral, BID, # 180 tabs, 3 Refill(s), Pharmacy: [place] [address], PLEASE USE THIS RX FOR 90 DAY SUPPLY. OUR NEW FAX#[phone], 1 tabs Oral BID Start Date: 04/16/15 Status: Ordered levothyroxine 125 mcg (0.125 mg) oral tablet See Instructions, TAKE ONE TABLET BY MOUTH ONCE DAILY, # 90 tabs, 1 Refill(s), eRx: [facility] 2428, TAKE ONE TABLET BY MOUTH ONCE DAILY Start Date: 09/05/15 Status: Ordered lisinopril 20 mg oral tablet 20 mg 1 tabs, Oral, BID, # 180 tabs, 3 Refill(s), Pharmacy: [facility] 2428 Start Date: 02/13/15 Status: Ordered metFORMIN 1000 mg oral tablet See Instructions, TAKE ONE TABLET BY MOUTH TWICE DAILY, # 180 tabs, 1 Refill(s) , eRx: [facility] 2428, TAKE ONE TABLET BY MOUTH TWICE DAILY [...]
--- OUTSIDE RECORDS SUMMARY | 2016-12-11 08:36 | XMS REPORT | Referral Summary ---
Author Author [facility] Organization [facility] Address Unknown Phone Unavailable Care Team Providers Care Underground Roof Bolter Name Role Phone Jason Marroquin Primary Care Physician [phone] Encounter Date(s): 06/13/15 - 06/13/15 [facility] [address] [address] Discharge Diagnosis: Severe obstructive sleep apnea [...] DAILY, # 90 tabs, 1 Refill(s), eRx: [place] [address], TAKE ONE-HALF TO ONE TABLET BY MOUTH ONCE DAILY Start Date: 12/21/14 Status: Ordered ATORVASTATIN 80MG TAB See Instructions, TAKE ONE-HALF TO ONE TABLET BY MOUTH ONCE DAILY, # 90 tabs, eRx: [place] [id number], TAKE ONE-HALF TO ONE TABLET BY MOUTH ONCE DAILY Start Date: 06/29/14 Status: Ordered glimepiride 2 mg oral tablet See Instructions, TAKE ONE TABLET BY MOUTH ONCE DAILY, # 30 tabs, 4 Refill(s), eRx: [place] [address], TAKE ONE TABLET BY MOUTH ONCE DAILY Start Date: 04/08/15 Status: Ordered Glucometer strips (DME) DME Item Contour test strips dx 250.00 3 mos supply Fasting and 2 hrs pp, See Instructions, # 1 Each, 0 Refill(s), Pharmacy: [place] [address], Contour test strips; dx 250.00; 3 mos supply; Fasting and 2 hrs pp, Supply Start Date: 10/30/14 Status: Ordered LaMICtal 150 mg oral tablet 150 mg 1 tabs, Oral, BID, # 180 tabs, 3 Refill(s), Pharmacy: [place] [address], PLEASE USE THIS RX FOR 90 DAY SUPPLY. OUR NEW FAX#[phone], 1 tabs Oral BID Start Date: 04/16/15 Status: Ordered levothyroxine 125 mcg (0.125 mg) oral tablet See Instructions, TAKE ONE TABLET BY MOUTH ONCE DAILY, # 90 tabs, eRx: [place] [id number], TAKE ONE TABLET BY MOUTH ONCE DAILY Start Date: 06/05/15 Status: Ordered lisinopril 20 mg oral tablet 20 mg 1 tabs, Oral, BID, # 180 tabs, 3 Refill(s), Pharmacy: [place] [address] Start Date: 02/13/15 Status: Ordered metFORMIN 1000 mg oral tablet 1 tabs, Oral, BID, # 180 tabs, 3 Refill(s), Pharmacy: [place] [address], 1 tabs Oral BID Start Date: 10/30/14 [...] pressure withexcellent adherence to therapy. Order to [facility] for supplies. He does meet Medicare requirements [...]
--- OUTSIDE RECORDS SUMMARY | 2016-12-11 08:36 | XMS REPORT | Referral Summary ---
Author Author [facility] Organization [facility] Address Unknown Phone Unavailable Care Team Providers Care Drying Room Attendant Name Role Phone Curtis Franz Primary Care Physician [phone] Encounter Date(s): 04/01/16 - 04/01/16 [facility] [place], [address] [place] [address] Discharge Diagnosis: Benign essential hypertension Discharge Diagnosis: Dyslipidemia Discharge Diagnosis: Hypothyroidism Discharge Diagnosis: Obesity Discharge Diagnosis: Type 2 diabetes mellitus, uncontrolled Discharge Diagnosis: Microalbuminuric Diabetic Nephropathy Discharge Disposition: 01-Home or Self Care Attending Physician: Edwige Wang APRN Admitting Physician: Edwige Wang APRN Vital Signs Most recent to 1 oldest [Reference Range]: Temperature Tympanic 36.6 degC [36.6-38.1 degC] (04/01/16 3:52 PM) Peripheral Pulse 88 bpm Rate [60-100 bpm] (04/01/16 3:52 PM) Blood Pressure 138/86 mmHg [90-140/60-90 mmHg] (04/01/16 3:52 PM) Problem List Condition Effective Dates Status [...] rmed) Microalbuminuric Active Diabetic Nephropathy(Confirme d) Obesity(Confirmed) Active Severe obstructive Active sleep apnea(Confirmed) Seizure(Confirmed) Active patient Tobacco < 10/28/14 Resolved patient user(Confirmed) Type 2 diabetes Active mellitus, uncontrolled(Confirm ed) Allergies, Adverse Reactions, Alerts No Known Medication Allergies Medications amLODIPine 5 mg oral tablet 5 mg 1 tabs, Oral, Daily, # 90 tabs, 3 Refill(s), Pharmacy: [facility] 2428, 1 tabs Oral Daily Start Date: 08/15/15 Status: Ordered aspirin 81 mg oral tablet, chewable 1 tabs, Oral, Daily, 0 Refill(s) Start Date: 04/10/14 Status: Ordered atorvastatin 80 mg oral tablet See Instructions, TAKE ONE-HALF TO ONE TABLET BY MOUTH ONCE DAILY, # 90 tabs, 2 Refill(s), eRx: [place] [address], TAKE ONE-HALF TO ONE TABLET BY MOUTH ONCE DAILY Start Date: 12/23/15 Status: Ordered ATORVASTATIN 80MG TAB See Instructions, TAKE ONE-HALF TO ONE TABLET BY MOUTH ONCE DAILY, # 90 tabs, eRx: [place] [id number], TAKE ONE-HALF TO ONE TABLET BY MOUTH ONCE DAILY Start Date: 06/29/14 Status: Ordered glimepiride 2 mg oral tablet See Instructions, TAKE ONE TABLET BY MOUTH ONCE DAILY, # 90 tabs, 3 Refill(s), Pharmacy: [place] [address], TAKE ONE TABLET BY MOUTH ONCE DAILY Start Date: 08/15/15 Status: Ordered Invokamet 150 mg-1000 mg oral tablet 1 tabs, Oral, BID, bkf and supper. Start when invokana 100 mg is complete., # 60 tabs, 0 Refill(s), Pharmacy: [place] [address] Start Date: 04/01/16 Status: Ordered Invokana 100 mg oral tablet 100 mg 1 tabs, Oral, Daily, # 30 tabs, 0 Refill(s), Pharmacy: [facility] 2428, 1 tabs Oral Daily Start Date: 04/01/16 Status: Ordered LaMICtal 150 mg oral tablet 150 mg 1 tabs, Oral, BID, # 180 tabs, 3 Refill(s), Pharmacy: [facility] 2428, PLEASE USE THIS RX FOR 90 DAY SUPPLY. OUR NEW FAX#[phone], 1 tabs Oral BID Start Date: 04/16/15 Status: Ordered levothyroxine 125 mcg (0.125 mg) oral tablet See Instructions, TAKE ONE TABLET BY MOUTH ONCE DAILY, # 90 tabs, 1 Refill(s), eRx: [facility] 2428, TAKE ONE TABLET BY MOUTH ONCE DAILY Start Date: 03/10/16 Status: Ordered lisinopril 20 mg oral tablet 20 mg 1 tabs, Oral, BID, X 90 days, # 180 tabs, 3 Refill(s), Pharmacy: [facility] 2428 Start Date: 04/01/16 Stop Date: 03/27/17 Status: Ordered metFORMIN 1000 mg oral tablet See Instructions, TAKE ONE TABLET BY MOUTH TWICE DAILY, # 180 tabs, 1 Refill(s) , eRx: [facility] 2428, TAKE ONE TABLET BY MOUTH TWICE [...] 12/27/08 Vasectomy 1974 Surgery - intestinal obstruction 1952 Appendectomy 1no diabetic retinopathy dr Lemus Social History Social History Type Response Smoking Status Former smoker Assessment and Plan Extracted from: Title: Office Visit Note-CDM Author: Edwige Wang APRN Date: 04/01/16 Assessment/Plan 1.Type 2 diabetes mellitus, uncontrolled Currently uncontrolled. Discussed multiple treatment options with the patient. Start Invokana 100 mg by mouth every morning. Side effects discussed. When that prescription is complete may change to implement if affordable. Patient understands the combination of Invokana and metformin. He would stophis plain metformin. Strongly encouraged to work on healthy eating and making good food choices. 2.Benign essential hypertension Stable/acceptable control. Cont current regimen. Goal BP <140/90. Recommend checking blood pressure outside the office periodically. If consistently greater than goalnotify office. Please notify the office with any questions or issues. Encourage healthy lifestyle. 3.Dyslipidemia Stable. At goal. Cont same. 4.Hypothyroidism Last TSH within acceptable limits in August. Continue same. 5.Microalbuminuric Diabetic Nephropathy Improved. Continue lisinopril and amlodipine. 6.Obesity He lost weight well with eating vigorously weight loss program. Encouraged him to try to implementsome of the dietary changes. Orders: canagliflozin, 100 mg 1 tabs, Oral, Daily, # 30 tabs, 0 Refill(s), Pharmacy: [facility] 2428, 1 tabs Oral Daily canagliflozin-metFORMIN, 1 tabs, Oral, BID, bkf and supper. Start when invokana 100 mg is complete., # 60 tabs, 0 Refill(s), Pharmacy: [facility] 2428 lisinopril, 20 mg 1 tabs, Oral, BID, X 90 days, # 180 tabs, 2 Refill(s), Pharmacy: [facility] 2428
--- OUTSIDE RECORDS SUMMARY | 2016-12-11 08:37 | XMS REPORT | Referral Summary ---
Author Author [facility], [facility] Medicine Organization [facility] Address Unknown Phone Unavailable Care Team Providers Care Dispatcher Radio Name Role Phone Curtis Franz Primary Care Physician [phone] Encounter VC Date(s): 07/03/16 - 07/03/16 [facility] [address] [place] [address] Discharge Diagnosis: Benign essential hypertension Discharge Diagnosis: Hypothyroidism Discharge Diagnosis: Obesity due to excess calories Discharge Diagnosis: Mixed hyperlipidemia Discharge Diagnosis: Microalbuminuric Diabetic Nephropathy Discharge Diagnosis: Encounter for immunization Discharge Diagnosis: Type 2 diabetes mellitus, uncontrolled Discharge Diagnosis: Epilepsy Discharge Disposition: 01-Home or Self Care Attending Physician: Edwige Wang APRN Admitting Physician: Edwige Wang APRN Referring Physician: Isiah Franz MD Vital Signs Most recent to 1 oldest [Reference Range]: Temperature Tympanic 36.4 degC [36.6-38.1 degC] *LOW* (07/03/16 1:11 PM) Peripheral Pulse 76 bpm Rate [60-100 bpm] (07/03/16 1:11 PM) Respiratory Rate 16 br/min [14-20 br/min] (07/03/16 1:11 PM) Blood Pressure 138/82 mmHg [90-140/60-90 mmHg] (07/03/16 1:11 PM) Problem List Condition Effective Dates Status [...] Daily, # 90 tabs, 3 Refill(s), Pharmacy: [facility] 2428, 1 tabs Oral Daily Start Date: 08/15/15 Status: Ordered aspirin 81 mg oral tablet, chewable 1 tabs, Oral, Daily, 0 Refill(s) Start Date: 04/10/14 Status: Ordered atorvastatin 80 mg oral tablet See Instructions, TAKE ONE-HALF TO ONE TABLET BY MOUTH ONCE DAILY, # 90 tabs, 2 Refill(s), eRx: [facility] 2428, TAKE ONE-HALF TO ONE TABLET BY MOUTH ONCE DAILY Start Date: 12/23/15 Status: Ordered glimepiride 2 mg oral tablet See Instructions, TAKE ONE and 1/2 TABLET BY MOUTH ONCE DAILY, # 90 tabs, 3 Refill(s), Pharmacy: [place] [id number], TAKE ONE TABLET BY MOUTH ONCE DAILY Start Date: 08/15/15 Status: Ordered Invokamet 150 mg-1000 mg oral tablet See Instructions, TAKE ONE TABLET BY MOUTH TWICE DAILY WITH BREAKFAST AND SUPPER. START WHEN INVOKANA 100 MG IS COMPLETE., # 60 tabs, 2 Refill(s), eRx: [facility] 2428, TAKE ONE TABLET BY MOUTH TWICE DAILY WITH BREAKFAST AND SUPPER... Start Date: 05/25/16 Status: Ordered LaMICtal 150 mg oral tablet 150 mg 1 tabs, Oral, BID, # 180 tabs, 3 Refill(s), Pharmacy: [facility] 242, PLEASE USE THIS RX FOR 90 DAY SUPPLY. OUR NEW FAX#[phone], 1 tabs Oral BID Start Date: 04/16/15 Status: Ordered levothyroxine 125 mcg (0.125 mg) oral tablet See Instructions, TAKE ONE TABLET BY MOUTH ONCE DAILY, # 90 tabs, 1 Refill(s), eRx: [facility] 2428, TAKE ONE TABLET BY MOUTH ONCE DAILY Start Date: 03/10/16 Status: Ordered lisinopril 20 mg oral tablet 20 mg 1 tabs, Oral, BID, X 90 days, # 180 tabs, 3 Refill(s), Pharmacy: [facility] [id number] Start Date: 04/02/16 Stop Date: 03/28/17 Status: [...] Title: Office Visit Note-CDM Author: Edwige Wang PRODUCTION HELPER Date: Assessment/Plan 1.Benign essential hypertension Well controlled on current regimen. Continue same. Continue to monitor blood pressures outside the office. Goal blood pressures less than 140/90. 2.Type 2 diabetes mellitus, uncontrolled Improved but not at goal. Increase glyburide to 3 mg daily. Plan to recheck hemoglobin A1c in 3 months. Call with any problems. Continue other medications without change. CDM report card completed and reviewed with patient. Last labs reviewed with patient. Recommendations discussed. Copy provided. 3.Mixed hyperlipidemia Previously well-controlled on last lab in March. Continue statin. 4.Epilepsy No recent seizure activity.Continue on Lamictal. Follows with neurology. 5.Hypothyroidism Adequately supplemented and on last check. Recheck TSH in August. 6.Microalbuminuric Diabetic Nephropathy Improved in March. Monitor yearly. Continue JEANA inhibitor. 7.Obesity due to excess calories Weight is down 2 pounds from last visit. Encourage him to work on cutting portions and increasing his physical activity. Would like him to try to lose 5 pounds over the next 3 months. Counseled on flu vaccine. Given by nursing. Patient will be due for second pneumococcal vaccine. diabetic eye exam due in August.
--- OUTSIDE RECORDS SUMMARY | 2016-12-11 08:37 | XMS REPORT | Referral Summary ---
Author Author [facility] Organization [facility] Address Unknown Phone Unavailable Care Team Providers Care Payroll And Benefits Assistant Name Role Phone Jason Marroquin Primary Care Physician [phone] Encounter Date(s): 01/24/15 - 01/24/[address] [facility] [address] [facility] [address] [place], [place] [address] Discharge Diagnosis: Epilepsy Discharge Disposition: 01-Home or [...] DAILY, # 90 tabs, 1 Refill(s), eRx: [facility] 2428, TAKE ONE-HALF TO ONE TABLET BY MOUTH ONCE DAILY Start Date: 12/21/14 Status: Ordered ATORVASTATIN 80MG TAB See Instructions, TAKE ONE-HALF TO ONE TABLET BY MOUTH ONCE DAILY, # 90 tabs, eRx: [facility] 2428, TAKE ONE-HALF TO ONE TABLET BY MOUTH ONCE DAILY Start Date: 06/29/14 Status: Ordered glimepiride 2 mg oral tablet See Instructions, TAKE ONE TABLET BY MOUTH ONCE DAILY, # 30 tabs, 4 Refill(s), eRx: [place] [address], TAKE ONE TABLET BY MOUTH ONCE DAILY Start Date: 04/08/15 Status: Ordered Glucometer strips (DME) DME Item Contour test strips dx 250.00 3 mos supply Fasting and 2 hrs pp, See Instructions, # 1 Each, 0 Refill(s), Pharmacy: [place] [address], Contour test strips; dx 250.00; 3 mos supply; Fasting and 2 hrs pp, Supply Start Date: 10/30/14 Status: Ordered LaMICtal 150 mg oral tablet 150 mg 1 tabs, Oral, BID, # 180 tabs, 3 Refill(s), Pharmacy: [place] [address], PLEASE USE THIS RX FOR 90 DAY SUPPLY. OUR NEW FAX#[phone], 1 tabs Oral BID Start Date: 04/16/15 Status: Ordered levothyroxine 125 mcg (0.125 mg) oral tablet See Instructions, TAKE ONE TABLET BY MOUTH ONCE DAILY, # 90 tabs, eRx: [place] [id number], TAKE ONE TABLET BY MOUTH ONCE DAILY Start Date: 06/05/15 Status: Ordered lisinopril 20 mg oral tablet 20 mg 1 tabs, Oral, BID, # 180 tabs, 3 Refill(s), Pharmacy: [place] [address] Start Date: 02/13/15 Status: Ordered metFORMIN 1000 mg oral tablet 1 tabs, Oral, BID, # 180 tabs, 3 Refill(s), Pharmacy: [place] [address], 1 tabs Oral BID Start Date: 10/30/14 [...]
--- OUTSIDE RECORDS SUMMARY | 2016-12-11 08:37 | XMS REPORT | Referral Summary ---
Author Author [facility] Organization [facility] Address Unknown Phone Unavailable Care Team Providers Care Track Welder Name Role Phone Jason Marroquin Primary Care Physician [phone] Encounter Date(s): 06/13/15 - 06/13/15 [facility] [address] [address] Discharge Diagnosis: Severe obstructive sleep apnea [...] DAILY, # 90 tabs, 1 Refill(s), eRx: [place] [id number], TAKE ONE-HALF TO ONE TABLET BY MOUTH ONCE DAILY Start Date: 12/21/14 Status: Ordered ATORVASTATIN 80MG TAB See Instructions, TAKE ONE-HALF TO ONE TABLET BY MOUTH ONCE DAILY, # 90 tabs, eRx: [place] [id number], TAKE ONE-HALF TO ONE TABLET BY MOUTH ONCE DAILY Start Date: 06/29/14 Status: Ordered glimepiride 2 mg oral tablet See Instructions, TAKE ONE TABLET BY MOUTH ONCE DAILY, # 30 tabs, 4 Refill(s), eRx: [place] [address], TAKE ONE TABLET BY MOUTH ONCE DAILY Start Date: 04/08/15 Status: Ordered Glucometer strips (DME) DME Item Contour test strips dx 250.00 3 mos supply Fasting and 2 hrs pp, See Instructions, # 1 Each, 0 Refill(s), Pharmacy: [place] [id number], Contour test strips; dx 250.00; 3 mos supply; Fasting and 2 hrs pp, Supply Start Date: 10/30/14 Status: Ordered LaMICtal 150 mg oral tablet 150 mg 1 tabs, Oral, BID, # 180 tabs, 3 Refill(s), Pharmacy: [place] [address], PLEASE USE THIS RX FOR 90 DAY SUPPLY. OUR NEW FAX#[phone], 1 tabs Oral BID Start Date: 04/16/15 Status: Ordered levothyroxine 125 mcg (0.125 mg) oral tablet See Instructions, TAKE ONE TABLET BY MOUTH ONCE DAILY, # 90 tabs, eRx: [place] [id number], TAKE ONE TABLET BY MOUTH ONCE DAILY Start Date: 06/05/15 Status: Ordered lisinopril 20 mg oral tablet 20 mg 1 tabs, Oral, BID, # 180 tabs, 3 Refill(s), Pharmacy: [place] [id number] Start Date: 02/13/15 Status: Ordered metFORMIN 1000 mg oral tablet 1 tabs, Oral, BID, # 180 tabs, 3 Refill(s), Pharmacy: [place] [id number], 1 tabs Oral BID Start Date: 10/30/14 [...] pressure withexcellent adherence to therapy. Order to [facility] for supplies. He does meet [...]
--- OUTSIDE RECORDS SUMMARY | 2016-12-11 08:37 | XMS REPORT | Referral Summary ---
Author Author [facility] Organization [facility] Address Unknown Phone Unavailable Care Team Providers Care Moccasin Sewer Name Role Phone Jason Marroquin Primary Care Physician [phone] Encounter Date(s): 01/24/15 - 01/24/[address] [facility] [address] [facility] [address] [place], [place] [address] Discharge Diagnosis: Epilepsy Discharge Disposition: 01-Home [...] DAILY, # 90 tabs, 1 Refill(s), eRx: [facility] 2428, TAKE ONE-HALF TO ONE TABLET BY MOUTH ONCE DAILY Start Date: 12/21/14 Status: Ordered ATORVASTATIN 80MG TAB See Instructions, TAKE ONE-HALF TO ONE TABLET BY MOUTH ONCE DAILY, # 90 tabs, eRx: [facility] 2428, TAKE ONE-HALF TO ONE TABLET BY MOUTH ONCE DAILY Start Date: 06/29/14 Status: Ordered glimepiride 2 mg oral tablet See Instructions, TAKE ONE TABLET BY MOUTH ONCE DAILY, # 30 tabs, 4 Refill(s), eRx: [place] [address], TAKE ONE TABLET BY MOUTH ONCE DAILY Start Date: 04/08/15 Status: Ordered Glucometer strips (DME) DME Item Contour test strips dx 250.00 3 mos supply Fasting and 2 hrs pp, See Instructions, # 1 Each, 0 Refill(s), Pharmacy: [place] [address], Contour test strips; dx 250.00; 3 mos supply; Fasting and 2 hrs pp, Supply Start Date: 10/30/14 Status: Ordered LaMICtal 150 mg oral tablet 150 mg 1 tabs, Oral, BID, # 180 tabs, 3 Refill(s), Pharmacy: [place] [address], PLEASE USE THIS RX FOR 90 DAY SUPPLY. OUR NEW FAX#[phone], 1 tabs Oral BID Start Date: 04/16/15 Status: Ordered levothyroxine 125 mcg (0.125 mg) oral tablet See Instructions, TAKE ONE TABLET BY MOUTH ONCE DAILY, # 90 tabs, eRx: [place] [id number], TAKE ONE TABLET BY MOUTH ONCE DAILY Start Date: 06/05/15 Status: Ordered lisinopril 20 mg oral tablet 20 mg 1 tabs, Oral, BID, # 180 tabs, 3 Refill(s), Pharmacy: [place] [address] Start Date: 02/13/15 Status: Ordered metFORMIN 1000 mg oral tablet 1 tabs, Oral, BID, # 180 tabs, 3 Refill(s), Pharmacy: [place] [address], 1 tabs Oral BID Start Date: 10/30/14 [...]
--- OUTSIDE RECORDS SUMMARY | 2016-12-11 08:37 | XMS REPORT | Referral Summary ---
Author Author [facility] Organization [facility] Address Unknown Phone Unavailable Care Team Providers Care Oncology Nurse Name Role Phone Jason Marroquin Primary Care Physician [phone] Encounter Date(s): 02/13/15 - 02/13/15 [facility] [place], [address] [place] [address] Discharge Diagnosis: Diabetes Discharge Diagnosis: [...] 90 tabs, 1 Refill(s), eRx: [facility] 2428, TAKE ONE-HALF TO ONE TABLET BY MOUTH ONCE DAILY Start Date: 12/21/14 Status: Ordered ATORVASTATIN 80MG TAB See Instructions, TAKE ONE-HALF TO ONE TABLET BY MOUTH ONCE DAILY, # 90 tabs, eRx: [facility] 2428, TAKE ONE-HALF TO ONE TABLET BY MOUTH ONCE DAILY Start Date: 06/29/14 Status: Ordered glimepiride 2 mg oral tablet See Instructions, TAKE ONE TABLET BY MOUTH ONCE DAILY, # 30 tabs, 4 Refill(s), eRx: [facility] 2428, TAKE ONE TABLET BY MOUTH ONCE DAILY Start Date: 04/08/15 Status: Ordered Glucometer strips (DME) DME Item Contour test strips dx 250.00 3 mos supply Fasting and 2 hrs pp, See Instructions, # 1 Each, 0 Refill(s), Pharmacy: [place] [id number], Contour test strips; dx 250.00; 3 mos supply; Fasting and 2 hrs pp, Supply Start Date: 10/30/14 Status: Ordered LaMICtal 150 mg oral tablet 150 mg 1 tabs, Oral, BID, # 180 tabs, 3 Refill(s), Pharmacy: [place] [address], PLEASE USE THIS RX FOR 90 DAY SUPPLY. OUR NEW FAX#[phone], 1 tabs Oral BID Start Date: 04/16/15 Status: Ordered levothyroxine 125 mcg (0.125 mg) oral tablet See Instructions, TAKE ONE TABLET BY MOUTH ONCE DAILY, # 90 tabs, eRx: [facility] 2428, TAKE ONE TABLET BY MOUTH ONCE DAILY Start Date: 06/05/15 Status: Ordered lisinopril 20 mg oral tablet 20 mg 1 tabs, Oral, BID, # 180 tabs, 3 Refill(s), Pharmacy: [place] [id number] Start Date: 02/13/15 Status: Ordered metFORMIN 1000 mg oral tablet 1 tabs, Oral, BID, # 180 tabs, 3 Refill(s), Pharmacy: [place] [id number], 1 tabs Oral BID Start Date: 10/30/14 [...] Title: Office Visit Note-CDM Author: Edwige Wang DIGITAL ACCOUNT DIRECTOR Date: 02/13/15 Assessment/Plan Benign essential hypertension Increase lisinopril to 20 mg twice a day. Monitor blood pressures. Goal is less than 140/90. He is to call me if blood pressures do not improve. Plan recheck in 6 months. Ordered: Office Visit Level 4 Est 00753 Diabetes Pleased with current level of control. [...] Hemoglobin A1c Office Visit Level 4 Est 93770 Dyslipidemia Continue same. Ordered: Lipid Panel Office Visit Level 4 Est 97591 Ear lobe laceration Cauterized with silver nitrate. Bleeding stopped. Ordered: Office Visit Level 4 Est 49968 Hypothyroidism Recheck TSH in 6 months. Ordered: Office Visit Level 4 Est 71664 TSH with Reflex Free T4 Orders: lisinopril, 20 mg 1 tabs, Oral, BID, # 180 tabs, 3 Refill(s), Pharmacy : [id number]
--- OUTSIDE RECORDS SUMMARY | 2016-12-11 08:37 | XMS REPORT | Referral Summary ---
Author Author [facility] Organization [facility] Address Unknown Phone Unavailable Care Team Providers Care Clinical Unit Coordinator Name Role Phone Jason Marroqiun Primary Care Physician [phone] Encounter Date(s): 02/13/15 - 02/13/15 [facility] [place], [address] [place] [address] Discharge Diagnosis: Diabetes Discharge Diagnosis: [...] 90 tabs, 1 Refill(s), eRx: [facility] 2428, TAKE ONE-HALF TO ONE TABLET BY MOUTH ONCE DAILY Start Date: 12/21/14 Status: Ordered ATORVASTATIN 80MG TAB See Instructions, TAKE ONE-HALF TO ONE TABLET BY MOUTH ONCE DAILY, # 90 tabs, eRx: [facility] 2428, TAKE ONE-HALF TO ONE TABLET BY MOUTH ONCE DAILY Start Date: 06/29/14 Status: Ordered glimepiride 2 mg oral tablet See Instructions, TAKE ONE TABLET BY MOUTH ONCE DAILY, # 30 tabs, 4 Refill(s), eRx: [facility] 2428, TAKE ONE TABLET BY MOUTH ONCE DAILY Start Date: 04/08/15 Status: Ordered Glucometer strips (DME) DME Item Contour test strips dx 250.00 3 mos supply Fasting and 2 hrs pp, See Instructions, # 1 Each, 0 Refill(s), Pharmacy: [place] [address], Contour test strips; dx 250.00; 3 mos supply; Fasting and 2 hrs pp, Supply Start Date: 10/30/14 Status: Ordered LaMICtal 150 mg oral tablet 150 mg 1 tabs, Oral, BID, # 180 tabs, 3 Refill(s), Pharmacy: [place] [address], PLEASE USE THIS RX FOR 90 DAY SUPPLY. OUR NEW FAX#[phone], 1 tabs Oral BID Start Date: 04/16/15 Status: Ordered levothyroxine 125 mcg (0.125 mg) oral tablet See Instructions, TAKE ONE TABLET BY MOUTH ONCE DAILY, # 90 tabs, eRx: [facility] 2428, TAKE ONE TABLET BY MOUTH ONCE DAILY Start Date: 06/05/15 Status: Ordered lisinopril 20 mg oral tablet 20 mg 1 tabs, Oral, BID, # 180 tabs, 3 Refill(s), Pharmacy: [place] [address] Start Date: 02/13/15 Status: Ordered metFORMIN 1000 mg oral tablet 1 tabs, Oral, BID, # 180 tabs, 3 Refill(s), Pharmacy: [place] [id number], 1 tabs Oral BID Start Date: 10/30/14 [...] Title: Office Visit Note-CDM Author: Edwige Wang MONUMENTAL STONEMASON Date: 02/13/15 Assessment/Plan Benign essential hypertension Increase lisinopril to 20 mg twice a day. Monitor blood pressures. Goal is less than 140/90. He is to call me if blood pressures do not improve. Plan recheck in 6 months. Ordered: Office Visit Level 4 Est 89832 Diabetes Pleased with current level of control. [...] Hemoglobin A1c Office Visit Level 4 Est 64159 Dyslipidemia Continue same. Ordered: Lipid Panel Office Visit Level 4 Est 59341 Ear lobe laceration Cauterized with silver nitrate. Bleeding stopped. Ordered: Office Visit Level 4 Est 16188 Hypothyroidism Recheck TSH in 6 months. Ordered: Office Visit Level 4 Est 53167 TSH with Reflex Free T4 Orders: lisinopril, 20 mg 1 tabs, Oral, BID, # 180 tabs, 3 Refill(s), Pharmacy : [facility] [id number]
--- OUTSIDE RECORDS SUMMARY | 2016-12-11 08:37 | XMS REPORT | Referral Summary ---
Author Author [facility] Organization [facility] Address Unknown Phone Unavailable Care Team Providers Care Retail Helper Name Role Phone Curtis Franz Primary Care Physician [phone] Encounter [facility] [id number] Date(s): 06/16/16 - 06/16/16 [facility] [address] [place], [place] [address] Discharge Diagnosis: Severe obstructive sleep apnea Discharge Disposition: 01-Home or Self Care Attending Physician: Karla Alexander Admitting Physician: Karla Alexander Vital Signs Most recent to 1 oldest [Reference Range]: Peripheral Pulse 71 bpm Rate [60-100 bpm] (06/16/16 12:53 PM) Blood Pressure 138/92 mmHg [90-140/60-90 mmHg] (06/16/16 12:53 PM) SpO2 94 % (06/16/16 12:53 PM) Problem List Condition Effective Dates Status [...] Daily, # 90 tabs, 3 Refill(s), Pharmacy: [place] [id number], 1 tabs Oral Daily Start Date: 08/15/15 Status: Ordered aspirin 81 mg oral tablet, chewable 1 tabs, Oral, Daily, 0 Refill(s) Start Date: 04/10/14 Status: Ordered atorvastatin 80 mg oral tablet See Instructions, TAKE ONE-HALF TO ONE TABLET BY MOUTH ONCE DAILY, # 90 tabs, 2 Refill(s), eRx: [place] [address], TAKE ONE-HALF TO ONE TABLET BY MOUTH ONCE DAILY Start Date: 12/23/15 Status: Ordered ATORVASTATIN 80MG TAB See Instructions, TAKE ONE-HALF TO ONE TABLET BY MOUTH ONCE DAILY, # 90 tabs, eRx: [place] [address], TAKE ONE-HALF TO ONE TABLET BY MOUTH ONCE DAILY Start Date: 06/29/14 Status: Ordered glimepiride 2 mg oral tablet See Instructions, TAKE ONE TABLET BY MOUTH ONCE DAILY, # 90 tabs, 3 Refill(s), Pharmacy: [place] [address], TAKE ONE TABLET BY MOUTH ONCE DAILY Start Date: 08/15/15 Status: Ordered Invokamet 150 mg-1000 mg oral tablet See Instructions, TAKE ONE TABLET BY MOUTH TWICE DAILY WITH BREAKFAST AND SUPPER. START WHEN INVOKANA 100 MG IS COMPLETE., # 60 tabs, 2 Refill(s), eRx: [place] [address], TAKE ONE TABLET BY MOUTH TWICE DAILY WITH BREAKFAST AND SUPPER... Start Date: 05/25/16 Status: Ordered Invokana 100 mg oral tablet 100 mg 1 tabs, Oral, Daily, # 30 tabs, 0 Refill(s), Pharmacy: [place] [address], 1 tabs Oral Daily Start Date: 04/01/16 Status: Ordered LaMICtal 150 mg oral tablet 150 mg 1 tabs, Oral, BID, # 180 tabs, 3 Refill(s), Pharmacy: [place] [address], PLEASE USE THIS RX FOR 90 DAY SUPPLY. OUR NEW FAX#[phone], 1 tabs Oral BID Start Date: 04/16/15 Status: Ordered levothyroxine 125 mcg (0.125 mg) oral tablet See Instructions, TAKE ONE TABLET BY MOUTH ONCE DAILY, # 90 tabs, 1 Refill(s), eRx: [facility] 2428, TAKE ONE TABLET BY MOUTH ONCE DAILY Start Date: 03/10/16 Status: Ordered lisinopril 20 mg oral tablet 20 mg 1 tabs, Oral, BID, X 90 days, # 180 tabs, 3 Refill(s), Pharmacy: [facility] 2428 Start Date: 04/02/16 Stop Date: 03/28/17 Status: Ordered metFORMIN 1000 mg oral tablet See Instructions, TAKE ONE TABLET BY MOUTH TWICE DAILY, # 180 tabs, 1 Refill(s) , eRx: [facility] 2428, TAKE ONE TABLET BY [...] Office Visit Note Author: Karla Alexander Date: 06/16/16 Assessment/Plan 1.Severe obstructive sleep apnea - Adequate treatment with CPAP objectively at current pressure withexcellent adherence to therapy. He does have some probable snoring and not as restorative sleep with headaches and weight gain since retitration. Will increase pressure to 11cm - this was done by me in the room today. Continue CPAP with all sleep at 11cm. Overnight oximetry in 2 months on new pressure. He does intend to lose weight again. Order to [facility] for supplies. -CPAP download reviewed with the patient and patient is complying with and benefitting from treatment. -Avoid driving , partaking in hazardous activities, or operating heavy machinery if drowsy. -Continue appropriate cleaning of the machine/humidifier and update of all supplies including mask , tubing , and filters . -Return for follow-up in 1 year, unless pressure is not comfortable or continuing to have symptoms and call . Return/call sooner if any problems arise in the meantime.
[2016-12-11 08:42] VITALS: BP 139/72; PULSE 69; RESP 14; TEMP 97.9; O2SAT 98; Ht 180.3 cm; Wt 103.3 kg
[2016-12-11 09:02] LABS: ANION GAP 15 MEQ/L (5-15); BUN/CREATININE RATIO 16 RATIO (6-26); CALCIUM 9.4 MG/DL (8.4-10.2); CHLORIDE 104 MEQ/L (98-107); CO2 - CARBON DIOXIDE 27 MEQ/L (22-30); GLOMERULAR FILTRATION RATE 74; GLUCOSE 191 MG/DL (75-110); POTASSIUM 4.3 MEQ/L (3.6-5); SODIUM 146 MEQ/L (134-144)
[2016-12-11] MEDS ORDERED: BUPIVACAINE 0.25%/EPI 1:200,000 30ml SDV ONE (09:44)
--- NOTE | 2016-12-11 09:50 | ANESPREOP ---
Anesthesia Record Date and Time DATE: 12/11/16 TIME: 09:48 Pre-Op Diagnosis Umbilical hernia repair Proposed Surgical Procedure UMBILICAL HERNIA REPAIR NPO since: Midnight Allergies: Coded Allergies: No Known Drug Allergies (Verified Allergy, Unknown, 12/11/16) Ht/Wt/BMI Height: 5 ' 11.00 " Weight: 103.300 kg BMI: 31.8 kg/m2 Vital Signs Date Time Temp Pulse Resp B/P Pulse Ox O2 Delivery O2 Flow Rate FiO2 12/11/16 08:42 97.9 69 14 139/72 98 Room Air Medications Inpatient Medications Current Medications Medications (Trade) Dose Ordered Sig/Trinity Start Time Stop Time Status Last Admin Dose Admin Lactated Ringer's (Lactated Ringers) 1,000 ml @ 50 mls/hr Q20H 12/11/16 07:00 12/11/16 09:27 50 MLS/HR Amlodipine Besylate (Norvasc) 5 Mg Tablet, 5 MG PO DAILY, (Reported) Last Taken: on 12/10/16929 Canagliflozin/Metformin HCl (Invokamet 150-1, 000 mg Tablet) 1 Each Tablet, 1 TAB PO BID, (Reported) Last Taken: on 12/10/161899 Glipizide (Glipizide ER) 2.5 Mg Tab.er.24, 1 TAB PO DAILY, (Reported) Last Taken: on 12/10/16929 Lamotrigine (Lamictal) 150 Mg Tablet, 1 TAB PO BID, (Reported) Last Taken: on 12/10/161899 Levothyroxine Sodium (Levothyroxine Sodium) 100 Mcg Tablet, 100 MCG PO DAILY, (Reported) Last Taken: on 12/10/16929 Lisinopril/Hydrochlorothiazide (Lisinopril-Hctz 20-12.5 Tab) 1 Tab Tablet, 1 TAB PO BID, (Reported) Last Taken: on 12/10/161899 Lovastatin (Lovastatin) 40 Mg Tablet, 40 MG PO HS, (Reported) Last Taken: on 12/10/16929 Currently on Beta Antonia: Yes Beta Antonia Last Taken: 12/10/161899 Medical/Surgical History Anesthesia PMH: Reports: *Diabetes (TYPE 2), *Hypertension (CONTROLLED WITH MEDS), Hyperlipidemia, Reflux (HX), Seizures (LAST ONE A 2013), Sleep Apnea ( WEARS CPAP), Thyroid Disease (HYPOTHYROIDISM), Denies: Anesthesia Reactions (NO AIRWAY ISSUES), Cancer, Glaucoma Smoking Status: Former smoker (quit 2003 with 30 year history) Has pt. smoked today?: No Use Chewing Tobacco?: No Second Hand Exposure: No Substance Use Type: does not use Alcohol Intake: none Past Surgical History Orthopedic Surgeries: Yes - APPY Abdominal Surgeries: Yes - INTESTINAL OBSTRUCTION Genitourinary Surgeries: Cardiac Surgeries: Endocrine Surgeries: Reproductive Surgeries: Yes - VASECTOMY Neurological Surgeries: Ear Surgeries: Nose Surgeries: Throat Surgeries: Other Surgeries: Yes - HEMMORIODECTOMY Anesthesia Adverse Reactions: FOUND none Family Hx of Anesthesia Advers: none Hx of Motion Sickness: No Pertinent Findings Laboratory Tests 12/11/16 08:47 EKG Rhythm: Sinus Rhythm Physical Exam Respiratory: Lungs clear Cardiovascular: FOUND Regular rate, rhythm Airway Assessment Mallampati Score: II TMD: 3 Fingerbreadths Neck Extension: Fair Overall Assessment: No Airway Concerns ASA: 3 Plan Anesthesia Plan: TIVA, LMA Discussion Discussed risks/options/alternatives of anesthesia and questions answered. Patient consents. Nursing pain assessment noted. Present: Family Member Attestation Statement Prior to the delivery of any anesthetic medication, I examined the patient, developed the plan, obtained the patient's consent and discussed the risk and benefits of the procedure with the patient/guardian. SANTANA LOPEZ LEAD JAVASCRIPT ENGINEER Dec 11, 2016 09:50
[2016-12-11] MEDS ORDERED: PROPOFOL 500mg 50 ML IV ONE (10:02)
[2016-12-11] MEDS ORDERED: ONDANSETRON 4mg/2ml INJECTION ONE (10:28)
[2016-12-11] MEDS ORDERED: FENTANYL 100mcg/2ml INJECTION ONE ×2 (10:28→10:43)
[2016-12-11] MEDS ORDERED: GLYCOPYRROLATE 0.4mg/2ml INJECTION ONE (10:28)
[2016-12-11 11:19] VITALS: BP 107/58; PULSE 76; RESP 14; TEMP 97.2; O2SAT 94
[2016-12-11] MEDS ORDERED: HYDR-4246 PO (11:24)
[2016-12-11] MEDS ORDERED: IBUP-1724 PO (11:24)
[2016-12-11] MEDS ORDERED: POLY17PO6 PO (11:24)
[2016-12-11] MEDS ORDERED: KETOROLAC 15mg/ml INJECTION IV PRN (11:30)
[2016-12-11 11:34] VITALS: BP 107/63; PULSE 66; RESP 10; O2SAT 95
[2016-12-11 11:35] VITALS: BP 107/63; PULSE 66; RESP 10; O2SAT 95
[2016-12-11 11:49] VITALS: BP 113/68; PULSE 74; RESP 12; O2SAT 95
[2016-12-11 12:03] VITALS: BP 123/72; PULSE 78; RESP 14; TEMP 97.8; O2SAT 97
--- NOTE | 2016-12-11 12:11 | ANESPO ---
Post-Op Note Date 12/11/16 Time: 12:09 Status Pt Participated in Evaluation: Pt participated in person Vital Signs Date Time Temp Pulse Resp B/P Pulse Ox O2 Delivery O2 Flow Rate FiO2 12/11/16 12:03 97.8 78 14 123/72 97 Room Air Respiratory Function: Airway patent Cardiovascular Function: Regular pulse Mental Status: Alert/oriented Pain Level Intensity: 2 Hydration: Taking po fluids Complications during Recovery None apparent Follow-Up Instructions Instructions Per Surgeon KAYLYN SUAREZ Dec 11, 2016 12:11
--- NOTE | 2016-12-11 14:54 | OPNOTEF ---
DATE OF PROCEDURE 12/11/2016 SURGEON Armando Valero MD PREOPERATIVE DIAGNOSIS Symptomatic umbilical hernia. POSTOPERATIVE DIAGNOSIS Umbilical herniorrhaphy with incorporation of mesh. ANESTHESIA TIVA/local. BRIEF HISTORY/INDICATIONS Mr. Lentz is a 71-year-old gentleman who recently presented my office as a result of a history for some periumbilical discomfort and an enlarging umbilical hernia. Upon examination the patient was found to have a moderate element of prominence coming forth through the umbilicus that increased upon cough and Valsalva. It was recommended to the patient that he undergo an elective repair. The patient presents today to undergo this procedure. For completeness, please refer to notes included in the patient's chart. DESCRIPTION OF PROCEDURE After informed consent was obtained, the patient was brought to the operative suite and placed on the table in supine fashion. Paraumbilical region was then prepped and draped in sterile fashion. Formal time-out was then completed. 0.25% Marcaine with epinephrine was injected circumferentially around the umbilicus. Next a 3 cm curved incision was then made in an infraumbilical fashion through the area of analgesia. Dissection was carried down through deep subcuticular tissues. Base of the umbilicus was then dissected off of the hernia sac itself. Edges of the fascial defect were then dissected out circumferentially. Hernia sac and its contents were then returned back through the fascial defect. Preperitoneal plane was then created circumferentially around the fascial defect itself. Fascial defect was about 3 cm in diameter. Next a circular piece of Ventralex mesh that was approximately 6 cm in diameter was then placed through the fascial defect and into the preperitoneal space that had been previously dissected out. Edges of the mesh were then fixated to the fascia at each quadrant. This was accomplished by placing an O PDS suture through the fascia and obtaining a small purchase of the edge of the mesh and then subsequently advancing the needle back through the fascia resulting in the formation of a single interrupted suture. Once all four quadrant sutures had been placed, they were tied securely resulting in imbrication of the mesh in the preperitoneal location so that it covered the edges of the fascial defect by a couple of centimeters circumferentially. Next the fascial defect itself was then closed primarily by placing multiple single interrupted sutures of O PDS. These sutures also placed in such a fashion as to incorporate a small purchase of a small portion of the underlying mesh. Each suture was then tied sequentially resulting in nice imbrication of the fascial edges with incorporation of mesh as well in a preperitoneal fashion. Attention was directed towards closure. Base of the umbilicus was imbricated to underlying fascia. First a small subcuticular purchase of the base of the umbilicus was obtained followed by a small purchase of underlying fascia. Subcutaneous tissue was then reapproximated in a running fashion with 3-0 Vicryl. The skin itself was then closed a running subcuticular fashion with 4-0 Monocryl. The patient is in the process of awakening from his anesthetic and will be sent back to the recovery room once deemed in stable condition. IMAN
== END 2016-12-11 12:12 | disposition home or self-care (01) ==
LOC: SCU 08:31
PROVIDERS: ATTEND Surgery
DX: K42.9 Umbilical hernia without obstruction or gangrene (principal); E03.9 Hypothyroidism, unspecified; I10 Essential (primary) hypertension; Q82.0 Hereditary lymphedema; G40.909 Epilepsy, unspecified, not intractable, without status epilepticus; E11.21 Type 2 diabetes mellitus with diabetic nephropathy; E11.65 Type 2 diabetes mellitus with hyperglycemia; E78.2 Mixed hyperlipidemia; G47.33 Obstructive sleep apnea (adult) (pediatric); Z79.82 Long term (current) use of aspirin; Z79.899 Other long term (current) drug therapy; Z87.891 Personal history of nicotine dependence
CPT/HCPCS: 36415; 49585; 80048; J0330; J0690; J1885; J2405; J3010; J7120